=== PATIENT | male | born 1955 | race Two or more races ===

== ENCOUNTER 2016-07-29 10:32 | Inpatient (IN) | payer MEDICARE, MEDICAID ==
[2016-07-29 11:10] LABS: Hematocrit 43 % (42-52); Hemoglobin 14.3 g/dl (14.0-18.0); Mean Corpuscular HGB Conc 34 g/dl (31-36); Mean Corpuscular Hemoglobin 32 pg (27-31); Mean Corpuscular Volume 95 fL (80-94); Mean Platelet Volume 10 um3 (7.4-10.4); Red Blood Count 4.48 10^6/ul (4.0-5.4); Red Cell Distribution Width 14 % (10.5-15); White Blood Count 5.7 10^3/ul (3.5-10.8)
[2016-07-29] MEDS ORDERED: Magnesium Sulfate 1 GM IV* 1 GM/100 ML BAG IV ONE (11:20)
[2016-07-29] MEDS ORDERED: LORazepam INJ* 2 MG/ML 1 ML VIAL IV ONE ×3 (11:20→17:47)
[2016-07-29] MEDS ORDERED: Thiamine IV* 100 MG, Folic Acid IV* 1 MG, Multiple Vitamin IV ADULT* 10 ML in NS 0.9% 1... IV ONE (11:20)
[2016-07-29 11:22] LABS: ALT 35 U/L (7-52); AST 111 U/L (13-39); Albumin 4.5 g/dL (3.2-5.2); Alkaline Phosphatase 71 U/L (34-104); Anion Gap 10 mmol/L (2-11); BUN/Creatinine Ratio 15.2 (8-20); Blood Urea Nitrogen 15 mg/dL (6-24); CO2 Carbon Dioxide 24 mmol/L (22-32); Calcium 9.8 mg/dL (8.6-10.3); Chloride 102 mmol/L (101-111); EGFR African American 99.2 (>60); EGFR Non-African American 77.1 (>60); Globulin 3.5 g/dL (2-4); Glucose 122 mg/dL (70-100); Potassium 4.6 mmol/L (3.5-5.0); Sodium 136 mmol/L (133-145)
[2016-07-29] MEDS ORDERED: Ondansetron INJ* 2 MG/ML VIAL IV ONE (11:27)
--- NOTE | 2016-07-29 12:21 | ED ---
Complex/Multi-Sys Presentation - HPI Summary HPI Summary: Patient presents with nausea, vomiting, tremors, sweating, headache and hypertension since he stopped drinking alcohol yesterday. He typically consumes approximately 100 ounces of beer or liquor daily for years. He was sober for 9 years, but has been drinking again for the last 2 years. He awoke this morning at home "in bad shape" so he went to [facility] for help. An ambulance was called and he was brought to [facility] [place]. - History Of Current Complaint Chief Complaint: EDSubstanceAbuse Time Seen by Provider: 07/29/16 10:53 Hx Obtained From: Patient Onset/Duration: Gradual Onset Timing: Constant Severity Currently: Severe Severity Initially: Mild Location: Negative Aggravating Factor(s): movement Alleviating Factor(s): nothing Associated Signs And Symptoms: Positive: Headache, Nausea, Vomiting, Diaphoresis - mild - Allergies/Home Medications Allergies/Adverse Reactions: Allergies Allergy/AdvReac Type Severity Reaction Status Date / Time No Known Allergies Allergy Verified 07/29/16 10:59 PMH/Surg Hx/FS Hx/Imm Hx Endocrine/Hematology History: Reports: Hx Thyroid Disease Cardiovascular History: Reports: Hx Coronary Artery Disease, Hx Hypertension, Hx Pacemaker/ICD Denies: Other Cardiovascular Problems/Disorders Respiratory History: Reports: Hx Seasonal Allergies Denies: Other Respiratory Problems/Disorders GI History: Reports: Hx Gastroesophageal Reflux Disease, Hx Ulcer - HX ULCERS- SURGICALLY REPAIRED Musculoskeletal History: Reports: Hx Arthritis - HANDS, Hx Back Problems, Hx Gout, Hx Orthopedic Injury, Hx Tendonitis, Other Musculoskeletal History - HX GOUT FOOT AND RIGHT HIP AND FINFERS Sensory History: Reports: Hx Contacts or Glasses - READING Denies: Hx Hearing Aid Opthamlomology History: Reports: Hx Contacts or Glasses - READING Neurological History: Denies: Other Neuro Impairments/Disorders Psychiatric History: Reports: Hx Anxiety - ON MEDS, Hx Depression, Hx Inpatient Treatment - [facility], Hx Community [facility] Health [place] - [facility], Hx Suicide Attempt, Hx Substance Abuse - Alcohol. Lived at [facility] for 8yrs Denies: Hx Attention Deficit Hyperactivity Disorder, Hx Eating Disorder, Hx Panic Disorder, Hx Post Traumatic Stress Disorder, Hx Schizophrenia, Hx Bipolar Disorder, Hx of Violent Episodes Against Others, Other Psychiatric Issues/ Disorders - Surgical History Surgery Procedure, Year, and Place: LUMBAR x3 - LAST ONE 1988. STOMACH ULCER. CARDIAC BYPASS-. HEEL Rt - - THEN REMOVED METAL IN 1986 Hx Anesthesia Reactions: No - Immunization History Date of Tetanus Vaccine: Unk Date of Influenza Vaccine: None Infectious Disease History: Yes Infectious Disease History: Reports: Hx Hepatitis - HEP B Denies: Hx Clostridium Difficile, Hx Human Immunodeficiency Virus (HIV), Hx of Known/Suspected MRSA, Hx Shingles, Hx Tuberculosis, Hx Known/Suspected VRE, Hx Known/Suspected VRSA, History Other Infectious Disease, Traveled Outside the [place] in Last 30 Days - Family History Known Family History: Positive: Cardiac Disease, Other - alcohol abuse Negative: Hypertension, Diabetes - Social History Occupation: Unemployed Lives: Alone Alcohol Use: Daily Alcohol Amount: BEER 100 0Z A DAY (4-5 CANS OF BEER A DAY) Substance Use Type: Reports: Cocaine, Marijuana Substance Use Comment - Amount & Last Used: Pt reports trying not to drink but finds himself starting early on everyday Smoking Status (MU): Current Every Day Smoker Type: Cigarettes Amount Used/How Often: states stoppe smoking a year ago (05/15) Have You Smoked in the Last Year: Yes Cessation Counseling: Patient Advised to Stop Review of Systems Positive: Chills, Fatigue. Negative: Fever Negative: Chest Pain Negative: Shortness Of Breath Positive: Vomiting, Nausea. Negative: Diarrhea Positive: Headache Positive: Anxious All Other Systems Reviewed And Are Negative: Yes Physical Exam Triage Information Reviewed: Yes Vital Signs On Initial Exam: Initial Vitals Temp Pulse Resp BP Pulse Ox 98.7 F 64 16 217/93 97 07/29/16 10:42 07/29/16 10:42 07/29/16 10:42 07/29/16 10:42 07/29/16 10:42 Vital Signs Reviewed: Yes Appearance: Positive: No Pain Distress, Well-Nourished, Ill-Appearing Skin: Positive: Warm, Skin Color Reflects Adequate Perfusion, Dry, Soft Head/Face: Positive: Normal Head/Face Inspection Eyes: Positive: EOMI, SONJA, Conjunctiva Clear ENT: Positive: Hearing grossly normal, Pharynx normal Neck: Positive: Supple, Nontender, No Lymphadenopathy Respiratory/Lung Sounds: Positive: Clear to Auscultation, Breath Sounds Present Cardiovascular: Positive: RRR Abdomen Description: Positive: Nontender, Soft. Negative: Distended Bowel Sounds: Positive: Present Musculoskeletal: Positive: Strength/ROM Intact Neurological: Positive: Sensory/Motor Intact, Alert, Oriented to Person Place, Time Psychiatric: Positive: Anxious - patient appears anxious and worried about how he is feeling AVPU Assessment: Alert - Bess Coma Scale Coma Scale Total: 15 Diagnostics - Vital Signs Vital Signs Temp Pulse Resp BP Pulse Ox 07/29/16 12:00 74 12 173/85 99 07/29/16 11:37 16 07/29/16 11:30 63 16 179/87 97 07/29/16 11:00 69 13 189/100 99 07/29/16 10:43 74 19 217/93 99 07/29/16 10:42 98.7 F 64 16 217/93 97 - Laboratory Lab Results: Lab Results 07/29/16 07/29/16 07/29/16 Range/Units 10:42 10:42 10:42 WBC 5.7 (3.5-10.8) 10^3/ul RBC 4.48 (4.0-5.4) 10^6/ul Hgb 14.3 (14.0-18.0) g/dl Hct 43 (42-52) % MCV 95 H (80-94) fL MCH 32 H (27-31) pg MCHC 34 (31-36) g/dl RDW 14 (10.5-15) % Plt Count 214 (150-450) 10^3/ul MPV 10 (7.4-10.4) um3 Neut % (Auto) 77.4 (38-83) % Lymph % (Auto) 14.5 L (25-47) % Clinton % (Auto) 6.8 (1-9) % Eos % (Auto) 0.5 (0-6) % Baso % (Auto) 0.8 (0-2) % Absolute Neuts (auto) 4.4 (1.5-7.7) 10^3/ul Absolute Lymphs (auto) 0.8 L (1.0-4.8) 10^3/ul Absolute Monos (auto) 0.4 (0-0.8) 10^3/ul Absolute Eos (auto) 0 (0-0.6) 10^3/ul Absolute Basos (auto) 0 (0-0.2) 10^3/ul Absolute Nucleated RBC 0 10^3/ul Nucleated RBC % 0 INR (Anticoag Therapy) 0.87 L (0.89-1.11) Sodium 136 (133-145) mmol/L Potassium 4.6 (3.5-5.0) mmol/L Chloride 102 (101-111) mmol/L Carbon Dioxide 24 (22-32) mmol/L Anion Gap 10 (2-11) mmol/L BUN 15 (6-24) mg/dL Creatinine 0.99 (0.67-1.17) mg/dL Est GFR ( Amer) 99.2 (>60) Est GFR (Non-Af Amer) 77.1 (>60) BUN/Creatinine Ratio 15.2 (8-20) Glucose 122 H (70-100) mg/dL Calcium 9.8 (8.6-10.3) mg/dL Total Bilirubin 1.30 H (0.2-1.0) mg/dL AST 111 H (13-39) U/L ALT 35 (7-52) U/L Alkaline Phosphatase 71 (34-104) U/L Total Protein 8.0 (6.4-8.9) g/dL Albumin 4.5 (3.2-5.2) g/dL Globulin 3.5 (2-4) g/dL Albumin/Globulin Ratio 1.3 (1-3) Result Diagrams: 07/29/16 10:42 07/29/16 10:42 Lab Statement: Any lab studies that have been ordered have been reviewed, and results considered in the medical decision making process. - EKG No standard instances Cardiac Rate: NL EKG Rhythm: Sinus Rhythm ST Segment: Normal Ectopy: None Re-Evaluation - Re-Evaluation First Eval Re-Evaluation Time: 13:30 Change: Improved - Patient less nauseous requesting a sandwich Second Eval Change: Worse - Starting to get leg cramps, which he has a history of. Third Eval Change: Worse - Patient got out of bed without calling for assistance and slipped on his cords, spilling his water and landing on his right forearm and lower leg. He denies hitting his head, and does not have a deformity to the arm or leg. He is tender to touch on the muscles of the arm and calf, but skin is intact. He was helped to the commode, and while using the bathroom he made irrational comments to the nurse, and seems more agitated. I will discuss admission for observation with the hospitalist. Complex Multi-Symp Course/Dx - Diagnoses Differential Diagnoses/HQI/PQRI: Aspiration, Closed Cranial Trauma, CVA, Metabolic Abnormality, Sepsis, Urinary Tract Infection Provider Diagnoses: Alcohol withdrawal - Physician Notifications Discussed Care Of Patient With: Dr. Waldrop, ED attending Discharge - Discharge Plan Condition: Stable Disposition: ADMITTED TO [facility]
[2016-07-29 13:58] LABS: Benzodiazepine Urine Screen None Detected (None Detect)
[2016-07-29 15:14] LABS: Troponin I 0.01 ng/mL (<0.04)
[2016-07-29 17:10] LABS: Alcohol < 10 mg/dL (<10)
[2016-07-29] MEDS ORDERED: Ondansetron INJ* 2 MG/ML VIAL IV PRN (18:14)
[2016-07-29 18:16] LABS: TSH (Thyroid Stimulating Horm) 4.34 mcIU/mL (0.34-5.60)
--- NOTE | 2016-07-29 18:53 | PN ---
Hospitalist Progress Note HOSPITALIST ADDENDUM Case reviewed and d/w A. Yu BARKLEY. Mr. Decker is a 61 yo M with PMH of PSA who presents to ED with ETOH withdrawal. Labs reviewed. Agree with current management.
[2016-07-29] MEDS ORDERED: Nicotine Inhaler* 10 MG AMP ONE (19:16)
[2016-07-29] MEDS ORDERED: Mouth Piece, Nicotine* 1 EACH CARTRIDGE ONE (19:17)
[2016-07-29] MEDS: Nicotine GUM* 2 MG PO PRN (20:34)
[2016-07-29] MEDS: LORazepam TAB(*) 1 MG PO SCH (20:34)
[2016-07-29] MEDS: Enoxaparin(*) 40 MG/0.4 ML SYR SUBCUT SCH (20:34)
--- NOTE | 2016-07-30 00:49 | HP ---
ADMISSION HISTORY AND PHYSICAL: DATE OF ADMISSION: 07/29/16 PRIMARY CARE PROVIDER: Octaviano Dupree MD ADMITTING PROVIDER: RUBIA Corral SUPERVISING PHYSICIAN: Cristy Main MD* (report dictated by RUBIA Corral). CHIEF COMPLAINT: Request for detox. HISTORY OF PRESENT ILLNESS: This is a 61-year-old gentleman with a history of polysubstance abuse as well as coronary artery disease and hypothyroidism, peptic ulcer disease who presented to the emergency department with request for help with detox. He stopped drinking on his own last night and presented to [facility] this morning requesting help who referred him to the emergency department for further evaluation. The patient was noted to be quite hypertensive with systolic pressures greater than 200 when he reached the ER. He was also noted to be quite tremulous. He has been given IV fluids and 3 doses of IV Ativan with some improvement. The patient started to have some visual hallucinations, however, and confusion and there was a request for admission. The patient has had long period of sobriety in the past. He was sober for about 9 years, but drinking regularly for the last 2 years. He admits to get regular marijuana use and occasional cocaine use as well. His last cocaine was approximately 2 days ago. He does have a known history of coronary artery disease and admits to only taking his medications on an intermittent basis. The patient denies any chest pain or palpitations. No shortness of breath or persistent cough. He has been nauseous with vomiting and diarrhea, however. He has felt intermittently febrile, but nothing measured. The patient denies history of seizures with prior detox. He is interested in pursuing perhaps an inpatient rehab after completing detox. PAST MEDICAL HISTORY: 1. Polysubstance abuse, most notably alcoholism. 2. Hypothyroidism. 3. Chronic hepatitis C. 4. Peptic ulcer disease, status post partial gastrectomy. 5. Hypertension. 6. Coronary artery disease, status post CABG. 7. Gout. PAST SURGICAL HISTORY: 1. CABG. 2. Unspecified back surgeries. 3. Partial gastrectomy. 4. Right ankle ORIF. HOME MEDICATIONS: 1. Allopurinol 300 mg p.o. daily. 2. Atorvastatin 10 mg p.o. daily. 3. Ferrous sulfate 325 mg p.o. daily. 4. Levothyroxine 88 mcg p.o. daily. 5. Metoprolol succinate 100 mg p.o. daily. 6. Naltrexone 50 mg p.o. daily. 7. Naproxen 500 mg p.o. twice daily. 8. Paxil 20 mg p.o. daily. 9. Hydroxyzine 25 mg p.o. q.4 hours p.r.n. SOCIAL HISTORY: The patient currently lives on his own and is unemployed. He reports regular tobacco use with approximate 40 to [id number] smoking history. Admits to regular alcohol consumption, states that he drinks about 100 ounces of beer daily. He denies heavy or hard alcohol use. Admits to regular marijuana use and occasional cocaine abuse. REVIEW OF SYSTEMS: As noted above in HPI. PHYSICAL EXAMINATION GENERAL: This is a well-appearing, middle-aged gentleman, who appears slightly tremulous, but is in no acute distress, but does appear anxious. VITAL SIGNS: Initial vitals showed temperature of 98.7 degrees Fahrenheit, pulse 64 beats per minute, respiratory rate 16 per minute, oxygen saturation 97 % on room air, blood pressure 217/93 mmHg. Most recent blood pressure measured with 177/81 mmHg. The patient has not been tachycardic during his ER stay. HEENT: Head is normocephalic and atraumatic. Mucous membranes are pink and most. RESPIRATORY: Lungs are clear to auscultation without wheezes, crackles, or rhonchi. CARDIOVASCULAR: Heart has a regular rate and rhythm without murmurs, rubs, or gallops. ABDOMEN: Soft and nontender to palpation. EXTREMITIES: No lower extremity edema. SKIN: Limited exam is free of rashes and lesions. PSYCH: The patient is alert, appropriately oriented, but does appear anxious. LABORATORY EVALUATION: CBC is essentially within normal limits. White blood cell count of 5700, hemoglobin 14.3 g/dL, and platelet count of 214,000. INR is normal at 0.87. Comprehensive metabolic panel shows a normal sodium of 136 mmol/L, potassium 4.6 mmol/L, BUN normal at 15, and creatinine 0.99. Random glucose of 122 mg/dL. Total bilirubin mildly elevated at 1.3 and AST at 111 with normal ALT of 35 and alk phos 71. Troponin negative at 0.01. Ammonia mildly elevated at 70. TSH is normal at 4.34. Toxicology screen is negative for alcohol, positive for cocaine and marijuana. IMAGING: EKG shows sinus rhythm with frequent PVCs. ASSESSMENT AND PLAN: This is a 61-year-old gentleman with history of polysubstance abuse, most notably alcoholism, as well as coronary artery disease , hypothyroidism, and peptic ulcer disease who presented with request for detox. The patient will be admitted to the hospital. 1. Alcohol withdrawal. The patient shows signs of moderate alcohol withdrawal in the emergency department and then began to develop some visual hallucinations. The patient will be admitted and placed on WAM protocol with oral Ativan. Continue IV fluids with lactated Ringer's and supportive care with the antiemetics. 2. History of coronary artery disease. The patient is currently asymptomatic. No changes on EKG and troponin is negative. We will place him on telemetry, however, during his time of detox as he is at high risk for dysrhythmias. We will continue his beta-irma. Also, note that he is not on an aspirin, which will be added. 3. Chronic hepatitis C. 4. Peptic ulcer disease. The patient is not currently on a PPI per his home medication list, but will be started on one as he is at high risk for gastritis and ulceration with his history of alcoholism. 5. Hypertension. Continue his beta-irma. 6. Tobacco abuse. The patient declines use of a nicotine patch during his hospital stay, but will write for p.r.n. nicotine gum for acute cravings. 7. Code status: The patient is full code. 8. DVT prophylaxis. The patient will be started on 40 mg of Lovenox subcu daily. 9. Healthcare proxy is unknown. DISPOSITION: The patient is being admitted to the hospital under inpatient status for acute alcohol withdrawal. ANTICIPATED LENGTH OF STAY: Greater than 2 days. RUBIA CORRAL CC: Dr. Dupree* [id number]/[facility] #: [id number] GLENYS
[2016-07-30] MEDS ORDERED: hydrALAZINE IV* 20 MG/ML VIAL IV ONE (04:22)
[2016-07-30] MEDS: Levothyroxine TAB* 88 MCG TAB PO SCH (05:09)
[2016-07-30 06:11] LABS: Hematocrit 39 % (42-52); Hemoglobin 13.1 g/dl (14.0-18.0); Mean Corpuscular HGB Conc 34 g/dl (31-36); Mean Corpuscular Hemoglobin 32 pg (27-31); Mean Corpuscular Volume 96 fL (80-94); Mean Platelet Volume 10 um3 (7.4-10.4); Red Blood Count 4.06 10^6/ul (4.0-5.4); Red Cell Distribution Width 14 % (10.5-15)
[2016-07-30 06:35] LABS: Albumin 3.9 g/dL (3.2-5.2); BUN/Creatinine Ratio 15.1 (8-20); Calcium 9.2 mg/dL (8.6-10.3); EGFR African American 106.6 (>60); EGFR Non-African American 82.9 (>60); Globulin 3.1 g/dL (2-4); Potassium 3.6 mmol/L (3.5-5.0); Total Bilirubin 1.3 mg/dL (0.2-1.0)
[2016-07-30] MEDS: Atorvastatin* 10 MG TAB PO SCH (08:04)
[2016-07-30] MEDS: Allopurinol TAB* 300 MG PO SCH (08:04)
[2016-07-30] MEDS: Omeprazole CAP* 20 MG PO SCH (08:04)
[2016-07-30] MEDS: Aspirin Low Dose CHEW TAB* 81 MG PO SCH (08:04)
[2016-07-30] MEDS: Multivitamins/Minerals TAB PO SCH (08:05)
[2016-07-30] MEDS: Folic Acid TAB* 1 MG PO SCH (08:05)
[2016-07-30] MEDS: PARoxetine HCL TAB* 20 MG PO SCH (08:05)
[2016-07-30] MEDS: Thiamine TAB* 100 MG TAB PO SCH (08:05)
[2016-07-30] MEDS ORDERED: Pneumococcal *Vac Polyvalent 0.5 ML VIAL IM ONE (09:00)
[2016-07-30] MEDS ORDERED: Influenza VAC *QUAD* 2016-17* 0.5 ML SYRINGE IM ONE (09:00)
[2016-07-30] MEDS ORDERED: Metoprolol Succinate XL TAB* 50 MG PO SCH (09:00)
[2016-07-30] MEDS: FERROUS SULFATE DRIED PO SCH (10:29)
[2016-07-30] MEDS ORDERED: Magnesium Sulfate 2 GM IV* 2 GM/50 ML BAG IVPB ONE (11:55)
[2016-07-30] MEDS: Metoprolol Succinate XL TAB* 50 MG PO SCH (12:24)
[2016-07-30] MEDS: Nicotine GUM* 2 MG PO PRN (15:32)
--- NOTE | 2016-07-30 16:44 | PN ---
Subjective Date of Service: 07/30/16 Interval History: This is a 61 yo gentleman with h/o alcoholism and CAD who presented to ER requesting detox. Patient has been placed on WA protocol. Seems to be doing fairly well since admission. Only required 1 dose of ativan overnight. Nursing noted he was in bigeminy/trigeminy earlier today. Patient was asymptomatic. Patient reports improvement in his tremulousness. Still some nausea but tolerating diet well. No abdominal pain. No CP or SOB. Objective Active Medications: Acetaminophen (Tylenol Tab*) 650 mg PO Q4H PRN PRN Reason: FEVER/PAIN Allopurinol (Zyloprim Tab*) [address] [facility] Last Admin: 07/30/16 08:04 Dose: 300 mg Aspirin (Aspirin Low Dose Tab*) [address] [facility] Last Admin: 07/30/16 08:04 Dose: 81 mg Atorvastatin Calcium (Lipitor*) [address] [facility] Last Admin: 07/30/16 08:04 Dose: 10 mg Enoxaparin Sodium (Lovenox(*)) [address] [facility] Last Admin: 07/29/16 20:34 Dose: 40 mg Folic Acid (Folvite Tab*) [address] [facility] Last Admin: 07/30/16 08:05 Dose: 1 mg Lactated Ringer's (Lactated Ringers 1000 Ml Bag*) 1,000 mls @ 60 mls/hr IV PER RATE [facility] Levothyroxine Sodium (Synthroid Tab*) 88 mcg PO DAILY@0600 [facility] Last Admin: 07/30/16 05:09 Dose: 88 mcg Lorazepam (Ativan Tab(*)) 0 mg PO .PER WAM SCORE [facility] PRN Reason: Protocol Last Admin: 07/29/16 20:34 Dose: 1 mg Metoprolol Succinate (Toprol Xl Tab*) [address] [facility] Last Admin: 07/30/16 12:24 Dose: 50 mg Multivitamins/Minerals (Theragran/Minerals Tab*) [address] [facility] Last Admin: 07/30/16 08:05 Dose: 1 tab Nicotine Polacrilex (Nicotine Gum*) 2 mg PO Q2H PRN PRN Reason: CRAVING Last Admin: 07/30/16 15:32 Dose: 2 mg Ferrous Sulfate Dried [Slow Fe] 324 Mg [address] [facility] Last Admin: 07/30/16 10:29 Dose: Not Given Omeprazole (Prilosec Cap*) 20 mg PO DAILY@0730 [facility] Last Admin: 07/30/16 08:04 Dose: 20 mg Ondansetron HCl (Zofran Inj*) 4 mg IV Q4H PRN PRN Reason: NAUSEA/VOMITING Paroxetine HCl (Paxil Tab*) [address] [facility] Last Admin: 07/30/16 08:05 Dose: 20 mg Thiamine HCl (Vitamin B-1 Tab*) [address] [facility] Last Admin: 07/30/16 08:05 Dose: 100 mg Vital Signs: Temp Pulse Resp BP Pulse Ox 97.7 F 91 16 183/90 100 07/30/16 12:05 07/30/16 10:04 07/30/16 12:05 07/30/16 12:05 07/30/16 12:05 Oxygen Devices in Use Now: None Appearance: Well appearing, in NAD Ears/Nose/Mouth/Throat: Mucous Membranes Moist Respiratory: Symmetrical Chest Expansion and Respiratory Effort, Clear to Auscultation Cardiovascular: NL Sounds; No Murmurs; No JVD, RRR Abdominal: NL Sounds; No Tenderness; No Distention Extremities: No Edema Skin: No Rash or Ulcers Neurological: Alert and Oriented x 3 Result Diagrams: 07/30/16 05:19 07/30/16 05:19 Additional Lab and Data: . Microbiology and Other Data: Microbiology 07/29/16 20:42 Nasal Screen MRSA (PCR)(ROMANA) - Final Nasal Mrsa Negative Assess/Plan/Problems-Billing Assessment: This is a 61 yo gentleman with h/o CAD and alcoholism admitted for ETOH w/d. - Patient Problems (1) Alcohol withdrawal Comment: Appears to be doing fairly well No hallucinations or seizure activity Can slow IVF as he is tolerating a regular diet Cont WAM protocol (2) Ventricular dysrhythmia Comment: Bigeminy/trigeminy on tele earlier today Improved with Mg and BB Cont tele (3) CAD (coronary artery disease) Comment: s/p CABG Cont BB, statin, ASA added Maintain tele during withdrawal (4) Hypertension Comment: Cont metoprolol (5) Hypothyroid Comment: TSH nl Cont levothyroxine (6) History of peptic ulcer disease Comment: No c/o abd pain Started PPI (7) Hx of hepatitis C Status and Disposition: Continue inpatient stay, anticipate discharge in ~2 days, patient desires rehab at discharge
[2016-07-30] MEDS: Enoxaparin(*) 40 MG/0.4 ML SYR SUBCUT SCH (19:43)
[2016-07-30] MEDS: LORazepam TAB(*) 1 MG PO SCH (22:32)
[2016-07-31] MEDS: Nicotine GUM* 2 MG PO PRN (01:31)
[2016-07-31] MEDS ORDERED: hydrALAZINE IV* 20 MG/ML VIAL IV ONE (02:40)
[2016-07-31] MEDS: LORazepam TAB(*) 1 MG PO SCH ×2 (02:52→20:24)
[2016-07-31] MEDS: Levothyroxine TAB* 88 MCG TAB PO SCH (05:10)
[2016-07-31] MEDS: Metoprolol Succinate XL TAB* 50 MG PO SCH (08:35)
[2016-07-31] MEDS: Omeprazole CAP* 20 MG PO SCH (08:35)
[2016-07-31] MEDS: PARoxetine HCL TAB* 20 MG PO SCH (08:36)
[2016-07-31] MEDS: Multivitamins/Minerals TAB PO SCH (08:36)
[2016-07-31] MEDS: Thiamine TAB* 100 MG TAB PO SCH (08:36)
[2016-07-31] MEDS: Folic Acid TAB* 1 MG PO SCH (08:36)
[2016-07-31] MEDS: Allopurinol TAB* 300 MG PO SCH (08:37)
[2016-07-31] MEDS: Aspirin Low Dose CHEW TAB* 81 MG PO SCH (08:37)
[2016-07-31] MEDS: Atorvastatin* 10 MG TAB PO SCH (08:37)
[2016-07-31] MEDS: FERROUS SULFATE DRIED PO SCH (08:38)
[2016-07-31] MEDS: Acetaminophen TAB* 325 MG PO PRN ×2 (13:44→20:25)
--- NOTE | 2016-07-31 16:58 | PN ---
Subjective Date of Service: 07/31/16 Interval History: Patient reports overall improvement. Anxiety has improved. Nausea improved. Tolerating full meals. Objective Active Medications: Acetaminophen (Tylenol Tab*) 650 mg PO Q4H PRN PRN Reason: FEVER/PAIN Last Admin: 07/31/16 13:44 Dose: 650 mg Allopurinol (Zyloprim Tab*) 300 mg PO DAILY [facility] Last Admin: 07/31/16 08:37 Dose: 300 mg Aspirin (Aspirin Low Dose Tab*) 81 mg PO DAILY [facility] Last Admin: 07/31/16 08:37 Dose: 81 mg Atorvastatin Calcium (Lipitor*) 10 mg PO DAILY [facility] Last Admin: 07/31/16 08:37 Dose: 10 mg Enoxaparin Sodium (Lovenox(*)) 40 mg SUBCUT Q24H [facility] Last Admin: 07/30/16 19:43 Dose: 40 mg Folic Acid (Folvite Tab*) 1 mg PO DAILY [facility] Last Admin: 07/31/16 08:36 Dose: 1 mg Lactated Ringer's (Lactated Ringers 1000 Ml Bag*) 1,000 mls @ 60 mls/hr IV PER RATE [facility] Last Admin: 07/31/16 15:26 Dose: 60 mls/hr Levothyroxine Sodium (Synthroid Tab*) 88 mcg PO DAILY@0600 [facility] Last Admin: 07/31/16 05:10 Dose: 88 mcg Lorazepam (Ativan Tab(*)) 0 mg PO .PER [facility] SCORE [facility] PRN Reason: Protocol Last Admin: 07/31/16 02:52 Dose: 1 mg Metoprolol Succinate (Toprol Xl Tab*) 100 mg PO DAILY [facility] Multivitamins/Minerals (Theragran/Minerals Tab*) 1 tab PO DAILY [facility] Last Admin: 07/31/16 08:36 Dose: 1 tab Nicotine Polacrilex (Nicotine Gum*) 2 mg PO Q2H PRN PRN Reason: CRAVING Last Admin: 07/31/16 01:31 Dose: 2 mg Ferrous Sulfate Dried [Slow Fe] 324 Mg 324 mg PO DAILY [facility] Last Admin: 07/31/16 08:38 Dose: Not Given Omeprazole (Prilosec Cap*) 20 mg PO DAILY@0730 [facility] Last Admin: 07/31/16 08:35 Dose: 20 mg Ondansetron HCl (Zofran Inj*) 4 mg IV Q4H PRN PRN Reason: NAUSEA/VOMITING Paroxetine HCl (Paxil Tab*) 20 mg PO QAM [facility] Last Admin: 07/31/16 08:36 Dose: 20 mg Thiamine HCl (Vitamin B-1 Tab*) 100 mg PO DAILY [facility] Last Admin: 07/31/16 08:36 Dose: 100 mg Vital Signs: Temp Pulse Resp BP Pulse Ox 98.2 F 31 18 141/57 100 07/31/16 15:16 07/31/16 15:16 07/31/16 15:16 07/31/16 15:16 07/31/16 15:16 Oxygen Devices in Use Now: None Appearance: well appearing, well developed, in NAD Neck: NL Appearance and Movements; NL JVP Respiratory: Symmetrical Chest Expansion and Respiratory Effort, Clear to Auscultation Cardiovascular: NL Sounds; No Murmurs; No JVD, RRR Abdominal: NL Sounds; No Tenderness; No Distention Extremities: No Edema Skin: No Rash or Ulcers Neurological: Alert and Oriented x 3, - - mood and affect are improved Result Diagrams: 07/30/16 05:19 07/30/16 05:19 Additional Lab and Data: . Microbiology and Other Data: Microbiology 07/29/16 20:42 Nasal Screen MRSA (PCR)(ROMANA) - Final Nasal Mrsa Negative Assess/Plan/Problems-Billing Assessment: This is a 61 yo gentleman with h/o CAD and alcoholism admitted for ETOH w/d. - Patient Problems (1) Alcohol withdrawal Comment: Appears to be doing fairly well No hallucinations or seizure activity Cont [facility] protocol (2) Ventricular dysrhythmia Comment: Note frequent PVCs with occasional bigeminy and trigeminy Increase metoprolol Will repeat chemistries tomorrow (3) CAD (coronary artery disease) Comment: s/p CABG Cont BB, statin, ASA added Maintain tele during withdrawal (4) Hypertension Comment: Cont metoprolol (5) Hypothyroid Comment: TSH nl Cont levothyroxine (6) History of peptic ulcer disease Comment: No c/o abd pain Started PPI (7) Hx of hepatitis C Status and Disposition: Continue inpatient stay, anticipate he will be ready for discharge tomorrow. [facility] has arranged inpatient rehab at [facility] in [place]. They have a bed available for him on Skylar 08/06. Transport was arranged by FL[facility]ENCE for him to be picked up from his home on .
[2016-07-31] MEDS: Enoxaparin(*) 40 MG/0.4 ML SYR SUBCUT SCH (20:25)
[2016-07-31] MEDS ORDERED: hydrALAZINE IV* 20 MG/ML VIAL IV SLOW PU ONE (22:15)
[2016-08-01] MEDS: Levothyroxine TAB* 88 MCG TAB PO SCH (05:17)
[2016-08-01 05:36] LABS: BUN/Creatinine Ratio 16.9 (8-20); Calcium 9.1 mg/dL (8.6-10.3); EGFR African American 132.5 (>60); EGFR Non-African American 103.1 (>60); Magnesium 1.7 mg/dL (1.9-2.7); Potassium 3.6 mmol/L (3.5-5.0)
[2016-08-01] MEDS: Metoprolol Succinate XL TAB* 100 MG PO SCH (07:58)
[2016-08-01] MEDS: Allopurinol TAB* 300 MG PO SCH (07:59)
[2016-08-01] MEDS: Omeprazole CAP* 20 MG PO SCH (07:59)
[2016-08-01] MEDS: PARoxetine HCL TAB* 20 MG PO SCH (07:59)
[2016-08-01] MEDS: Folic Acid TAB* 1 MG PO SCH (07:59)
[2016-08-01] MEDS: Thiamine TAB* 100 MG TAB PO SCH (07:59)
[2016-08-01] MEDS: Multivitamins/Minerals TAB PO SCH (07:59)
[2016-08-01] MEDS: Aspirin Low Dose CHEW TAB* 81 MG PO SCH (07:59)
[2016-08-01] MEDS: Atorvastatin* 10 MG TAB PO SCH (07:59)
[2016-08-01] MEDS: FERROUS SULFATE 325 MG PO SCH (08:11)
--- NOTE | 2016-08-01 18:09 | PN ---
Subjective Date of Service: 08/01/16 Interval History: Patient feels better. he is very scared of going home on New Years Nori because of the drinking that will go on in his neighborhood. Objective Active Medications: Acetaminophen (Tylenol Tab*) 650 mg PO Q4H PRN PRN Reason: FEVER/PAIN Last Admin: 07/31/16 20:25 Dose: 650 mg Allopurinol (Zyloprim Tab*) 300 mg PO DAILY [facility] Last Admin: 08/01/16 07:59 Dose: 300 mg Aspirin (Aspirin Low Dose Tab*) 81 mg PO DAILY [facility] Last Admin: 08/01/16 07:59 Dose: 81 mg Atorvastatin Calcium (Lipitor*) 10 mg PO DAILY [facility] Last Admin: 08/01/16 07:59 Dose: 10 mg Enoxaparin Sodium (Lovenox(*)) 40 mg SUBCUT Q24H [facility] Last Admin: 07/31/16 20:25 Dose: 40 mg Ferrous Sulfate (Ferrous Sulfate Tab*) 325 mg PO DAILY [facility] Last Admin: 08/01/16 08:11 Dose: 325 mg Folic Acid (Folvite Tab*) 1 mg PO DAILY [facility] Last Admin: 08/01/16 07:59 Dose: 1 mg Levothyroxine Sodium (Synthroid Tab*) 88 mcg PO DAILY@0600 [facility] Last Admin: 08/01/16 05:17 Dose: 88 mcg Lorazepam (Ativan Tab(*)) 0 mg PO .PER WAM SCORE [facility] PRN Reason: Protocol Last Admin: 07/31/16 20:24 Dose: 1 mg Metoprolol Succinate (Toprol Xl Tab*) 100 mg PO DAILY [facility] Last Admin: 08/01/16 07:58 Dose: 100 mg Multivitamins/Minerals (Theragran/Minerals Tab*) 1 tab PO DAILY [facility] Last Admin: 08/01/16 07:59 Dose: 1 tab Nicotine Polacrilex (Nicotine Gum*) 2 mg PO Q2H PRN PRN Reason: CRAVING Last Admin: 07/31/16 01:31 Dose: 2 mg Omeprazole (Prilosec Cap*) 20 mg PO DAILY@0730 [facility] Last Admin: 08/01/16 07:59 Dose: 20 mg Ondansetron HCl (Zofran Inj*) 4 mg IV Q4H PRN PRN Reason: NAUSEA/VOMITING Paroxetine HCl (Paxil Tab*) 20 mg PO QAM [facility] Last Admin: 08/01/16 07:59 Dose: 20 mg Thiamine HCl (Vitamin B-1 Tab*) 100 mg PO DAILY [facility] Last Admin: 08/01/16 07:59 Dose: 100 mg Vital Signs 07/31/16 07/31/16 07/31/16 18:14 19:47 20:08 Temperature 98.1 F 98.0 F Pulse Rate 77 65 Respiratory 16 16 16 Rate Blood Pressure 144/73 141/78 (mmHg) O2 Sat by Pulse 99 99 Oximetry 07/31/16 07/31/16 07/31/16 20:14 20:24 22:11 Temperature 98.5 F 98.0 F Pulse Rate 72 35 Respiratory 16 16 Rate Blood Pressure 146/73 187/68 (mmHg) O2 Sat by Pulse 99 100 Oximetry 07/31/16 07/31/16 07/31/16 22:24 22:30 22:55 Temperature Pulse Rate 49 Respiratory 16 Rate Blood Pressure 148/71 152/76 (mmHg) O2 Sat by Pulse Oximetry 07/31/16 08/01/16 08/01/16 22:56 00:17 01:39 Temperature 98.0 F Pulse Rate 70 64 31 Respiratory 20 Rate Blood Pressure 182/83 166/68 (mmHg) O2 Sat by Pulse 100 100 Oximetry 08/01/16 08/01/16 08/01/16 02:23 04:09 05:11 Temperature 98.1 F Pulse Rate 66 33 60 Respiratory 18 20 Rate Blood Pressure 166/68 150/61 (mmHg) O2 Sat by Pulse 100 100 Oximetry 08/01/16 08/01/16 08/01/16 06:06 08:00 10:27 Temperature 98.0 F 97.2 F 97.7 F Pulse Rate 37 54 Respiratory 20 18 18 Rate Blood Pressure 149/57 152/72 150/69 (mmHg) O2 Sat by Pulse 100 100 100 Oximetry 08/01/16 08/01/16 08/01/16 12:08 14:09 15:51 Temperature 98.0 F 97.9 F 98.1 F Pulse Rate 67 71 59 Respiratory 18 18 16 Rate Blood Pressure 151/74 130/75 149/74 (mmHg) O2 Sat by Pulse 100 100 100 Oximetry Oxygen Devices in Use Now: None Appearance: WD/Wn gentleman lying in bed in NAD Ears/Nose/Mouth/Throat: Mucous Membranes Moist Neck: NL Appearance and Movements; NL JVP, No Thyroid Enlargement, Masses Respiratory: Clear to Auscultation Cardiovascular: - - S1S2 saloni Abdominal: NL Sounds; No Tenderness; No Distention, No Hepatosplenomegaly Lymphatic: No Cervical Adenopathy Extremities: No Clubbing, Cyanosis Skin: No Rash or Ulcers Neurological: Alert and Oriented x 3 Result Diagrams: 07/30/16 05:19 08/01/16 04:52 Additional Lab and Data: . Microbiology and Other Data: Microbiology 07/29/16 20:42 Nasal Screen MRSA (PCR)(ROMANA) - Final Nasal Mrsa Negative Assess/Plan/Problems-Billing Assessment: This is a 61 yo gentleman with h/o CAD and alcoholism admitted for ETOH w/d. - Patient Problems (1) Alcohol withdrawal Current Visit: Yes Status: Acute Code(s): F10.239 - ALCOHOL DEPENDENCE WITH WITHDRAWAL, UNSPECIFIED SNOMED Code(s): 431415765 Comment: No current evidence he is withdrawing but did require some Ativan last night. Would discharge, but I agree New Years Nori may not be the most optimal time. (2) CAD (coronary artery disease) Current Visit: Yes Status: Acute Code(s): I25.10 - ATHSCL HEART DISEASE OF [place] CORONARY ARTERY W/O ANG PCTRS SNOMED Code(s): 43093216 Comment: History of CABG Cont BB, statin, ASA added DC telemetry (3) Hypertension Current Visit: Yes Status: Acute Code(s): I10 - ESSENTIAL (PRIMARY) HYPERTENSION SNOMED Code(s): 32273719 Comment: Borderline control. Adjust medications if indicated. (4) Hypothyroid Current Visit: Yes Status: Acute Code(s): E03.9 - HYPOTHYROIDISM, UNSPECIFIED SNOMED Code(s): 80028926 Comment: Stable. Continue levothyroxine (5) DVT prophylaxis Current Visit: Yes Status: Acute Code(s): GPE8245 - SNOMED Code(s): 980189911 Comment: Lovenox (6) Full code status Current Visit: Yes Status: Acute Code(s): Z78.9 - OTHER SPECIFIED HEALTH STATUS SNOMED Code(s): 319381378 Status and Disposition: SW has arranged inpatient rehab at [facility] in [place]. They have a bed available for him on [place] 1/5. Transport was arranged by [facility] for him to be picked up from his home on .
[2016-08-01] MEDS: Enoxaparin(*) 40 MG/0.4 ML SYR SUBCUT SCH (19:29)
[2016-08-01] MEDS: Acetaminophen TAB* 325 MG PO PRN (19:30)
[2016-08-02] MEDS: Acetaminophen TAB* 325 MG PO PRN ×2 (03:24→08:56)
[2016-08-02] MEDS: Levothyroxine TAB* 88 MCG TAB PO SCH (05:08)
[2016-08-02 07:45] VITALS: BP 153/102
[2016-08-02] MEDS: Folic Acid TAB* 1 MG PO SCH (08:51)
[2016-08-02] MEDS: Omeprazole CAP* 20 MG PO SCH (08:52)
[2016-08-02] MEDS: Allopurinol TAB* 300 MG PO SCH (08:53)
[2016-08-02] MEDS: Atorvastatin* 10 MG TAB PO SCH (08:53)
[2016-08-02] MEDS: FERROUS SULFATE 325 MG PO SCH (08:54)
[2016-08-02] MEDS: Metoprolol Succinate XL TAB* 100 MG PO SCH (08:54)
[2016-08-02] MEDS: Multivitamins/Minerals TAB PO SCH (08:55)
[2016-08-02] MEDS: Thiamine TAB* 100 MG TAB PO SCH (08:55)
[2016-08-02] MEDS: Aspirin Low Dose CHEW TAB* 81 MG PO SCH (08:56)
[2016-08-02] MEDS: PARoxetine HCL TAB* 20 MG PO SCH (08:56)
[2016-08-02] MEDS: Nicotine GUM* 2 MG PO PRN (08:56)
--- NOTE | 2016-08-02 10:21 | DCNOTE ---
Patient seen this morning. Reports a bit of nausea and some leg cramping. Understands plans for inpatient rehab on 08/06. On exam, RRR, s1 and s2 present, no m/g/r, abd soft, NTND, BS+ Plan to discharge home today and will go to [place] on 08/06. Will add Amlodipine to home regimen for elevated BPs.
[2016-08-02] MEDS ORDERED: amLODIPine TAB* 5 MG PO SCH (11:00)
--- NOTE | 2016-08-03 09:24 | DS ---
CC: Dr. Dupree DISCHARGE SUMMARY: DATE OF ADMISSION: 07/29/16 DATE OF DISCHARGE: 08/02/16 PRIMARY CARE PHYSICIAN: Dr. Dupree. PRINCIPAL DISCHARGE DIAGNOSIS: Alcohol withdrawal. SECONDARY DIAGNOSES: 1. Hypothyroidism. 2. Chronic hepatitis C. 3. Hypertension. 4. Coronary artery disease, status post coronary artery bypass grafting. 5. Gout. DISCHARGE MEDICATION REGIMEN: 1. Aspirin 81 mg by mouth daily. 2. Folic acid 1 mg by mouth daily. 3. Multivitamin one tablet by mouth daily. 4. Thiamine 100 mg by mouth daily. 5. Amlodipine 5 mg by mouth daily. 6. Hydroxyzine 25 mg by mouth every 4 hours as needed for anxiety. 7. Naltrexone 50 mg by mouth daily. 8. Naproxen 500 mg by mouth 2 times daily as needed for pain. 9. Paxil 20 mg by mouth daily. 10. Metoprolol succinate 100 mg by mouth daily. 11. Allopurinol 300 mg by mouth daily. 12. Atorvastatin 10 mg by mouth daily. 13. Ferrous sulfate 324 mg by mouth daily. 14. Synthroid 88 mcg by mouth daily. HISTORY OF PRESENT ILLNESS AND HOSPITAL SUMMARY: Please see the full history and physical by RUBIA Higginbotham for full details. Briefly, Mr. Decker is a 61 -year- old male with past medical history of alcohol abuse and above past medical history, who presented to the hospital after he stopped drinking on his own and presented to [facility]. He was referred to the hospital for assistance in alcohol detox. The patient was hypertensive and had some mild visual hallucinations on admission. He was treated with benzodiazepines and was monitored on [facility] protocol. He had persistent hypertension throughout his hospitalization. Over the following days, his withdrawal symptoms improved significantly and he did not require any p.r.n. Ativan for over 24 hours prior to discharge. Due to his persistent hypertension, the patient was started on Norvasc in addition to his home metoprolol. Aspirin is also added to his regimen. Social Work setup and inpatient rehab bed for the patient at [facility] on 08/06/16. The patient will have a ride pick him up at his house and take him to the rehabilitation center. TIME SPENT: Total time spent on this discharge 45 minutes. This is a summarized hospitalization. Please see the full medical record for further details. [id number]/[facility] #: [id number] MTDD
== END 2016-08-02 12:45 | disposition home or self-care (01) | DRG 897 ==
LOC: ED 10:32 → MED 18:14 → MEDTELE 19:09
PROVIDERS: ADMIT Internal Medicine; ATTEND Hospitalist
DX: F10.239 Alcohol dependence with withdrawal, unspecified (principal); F14.10 Cocaine abuse, uncomplicated; I47.0 Re-entry ventricular arrhythmia; I25.810 Atherosclerosis of coronary artery bypass graft(s) without angina pectoris; Y90.0 Blood alcohol level of less than 20 mg/100 ml; E03.9 Hypothyroidism, unspecified; B18.2 Chronic viral hepatitis C; I11.9 Hypertensive heart disease without heart failure; M10.9 Gout, unspecified; F12.10 Cannabis abuse, uncomplicated; F17.210 Nicotine dependence, cigarettes, uncomplicated; K25.9 Gastric ulcer, unspecified as acute or chronic, without hemorrhage or perforation; Z95.1 Presence of aortocoronary bypass graft; Z79.899 Other long term (current) drug therapy
CPT/HCPCS: 36415; 80048; 80053; 80301; 80320; 82140; 83735; 84443; 84484; 85025; 85610; 87641; 90686; 90732; 93005; A9270-GY; G0479; G0480; J0360; J1650; J2060; J2405; J3411; J3475

== ENCOUNTER 2017-02-22 06:05 | Emergency (ER) | payer MEDICARE, MEDICAID ==
--- NOTE | 2017-02-22 06:56 | ED ---
Rajni Patel Edward, scribed for Carlos Wyatt MD on 02/22/17 at 0645 . Shortness of Breath - HPI Summary HPI Summary: 62 y/o BIBA c/o SOB starting last night. Patient states he felt like he was choking after eating a cookie before going to bed last night. He woke up in the middle of the night twice and vomited each time. Since then the patient has had difficulty breathing but it is slightly resolved now. Patient rates his discomfort at a 3/10 at triage. Associated sx: cough and sore throat. Patient states he has had episodes like this before. - History of Current Complaint Chief Complaint: EDThroatPain Time Seen by Provider: 02/22/17 06:10 Hx Obtained From: Patient Onset/Duration: Sudden Onset, Lasting Hours - This morning Associated Signs & Symptoms: Cough (Productive) - Allergy/Home Medications Allergies/Adverse Reactions: Allergies Allergy/AdvReac Type Severity Reaction Status Date / Time No Known Allergies Allergy Verified 02/22/17 09:50 Home Medications: Home Medications PARoxetine HCL TAB* [Paxil TAB*] 20 mg PO DAILY 02/22/17 [History Confirmed ] PMH/Surg Hx/FS Hx/Imm Hx Previously Healthy: No Endocrine/Hematology History: Reports: Hx Thyroid Disease Cardiovascular History: Reports: Hx Coronary Artery Disease, Hx Hypertension, Hx Pacemaker/ICD Denies: Other Cardiovascular Problems/Disorders Respiratory History: Reports: Hx Seasonal Allergies Denies: Other Respiratory Problems/Disorders GI History: Reports: Hx Gastroesophageal Reflux Disease, Hx Ulcer - HX ULCERS- SURGICALLY REPAIRED Musculoskeletal History: Reports: Hx Arthritis - HANDS, Hx Back Problems, Hx Gout, Hx Orthopedic Injury, Hx Tendonitis, Other Musculoskeletal History - HX GOUT FOOT AND RIGHT HIP AND FINFERS Sensory History: Reports: Hx Contacts or Glasses - READING Denies: Hx Hearing Aid Opthamlomology History: Reports: Hx Contacts or Glasses - READING Neurological History: Denies: Other Neuro Impairments/Disorders Psychiatric History: Reports: Hx Anxiety - ON MEDS, Hx Depression, Hx Inpatient Treatment - [facility] [place] [facility], Hx Community Mental Health Tx - [facility], Hx Suicide Attempt, Hx Substance Abuse - Alcohol. Lived at [facility] for 8yrs Denies: Hx Attention Deficit Hyperactivity Disorder, Hx Eating Disorder, Hx Panic Disorder, Hx Post Traumatic Stress Disorder, Hx Schizophrenia, Hx Bipolar Disorder, Hx of Violent Episodes Against Others, Other Psychiatric Issues/ Disorders - Surgical History Surgery Procedure, Year, and Place: LUMBAR x3 - LAST ONE 1988. STOMACH ULCER. CARDIAC BYPASS-. HEEL Rt - - THEN REMOVED METAL IN 1986 Hx Anesthesia Reactions: No - Immunization History Date of Tetanus Vaccine: Unk Date of Influenza Vaccine: None Infectious Disease History: No Infectious Disease History: Reports: Hx Hepatitis - HEP B Denies: Hx Clostridium Difficile, Hx Human Immunodeficiency Virus (HIV), Hx of Known/Suspected MRSA, Hx Shingles, Hx Tuberculosis, Hx Known/Suspected VRE, Hx Known/Suspected VRSA, History Other Infectious Disease, Traveled Outside the [place] in Last 30 Days - Family History Known Family History: Positive: Cardiac Disease, Other - alcohol abuse Negative: Hypertension, Diabetes - Social History Alcohol Use: former alcohol abuser Alcohol Amount: last used 6 months ago Hx Substance Use: Yes Substance Use Type: Reports: Cocaine, Marijuana Substance Use Comment - Amount & Last Used: last used 6 months ago Hx Tobacco Use: Yes Smoking Status (MU): Current Every Day Smoker Type: Cigarettes Amount Used/How Often: states stoppe smoking a year ago (05/15) Have You Smoked in the Last Year: Yes Review of Systems Constitutional: Negative Eyes: Negative Positive: Sore Throat Cardiovascular: Negative Positive: Shortness Of Breath, Cough - Productive Gastrointestinal: Negative Genitourinary: Negative Musculoskeletal: Negative Skin: Negative Neurological: Negative Psychological: Normal All Other Systems Reviewed And Are Negative: Yes Physical Exam Triage Information Reviewed: Yes Vital Signs On Initial Exam: Initial Vitals Temp Pulse Resp BP Pulse Ox 97.9 F 55 16 135/45 96 02/22/17 06:09 02/22/17 06:09 02/22/17 06:09 02/22/17 06:09 02/22/17 06:09 Vital Signs Reviewed: Yes Appearance: Positive: Thin - mildly anxious Skin: Positive: Warm Head/Face: Positive: Normal Head/Face Inspection Eyes: Positive: SONJA ENT: Positive: Hearing grossly normal Neck: Positive: Supple Respiratory/Lung Sounds: Positive: Breath Sounds Present Cardiovascular: Positive: RRR Abdomen Description: Positive: Nontender, Soft Bowel Sounds: Positive: Present Musculoskeletal: Positive: Strength/ROM Intact Neurological: Positive: Alert, Oriented to Person Place, Time Psychiatric: Positive: Affect/Mood Appropriate - Bess Coma Scale Coma Scale Total: 15 Diagnostics - Vital Signs Vital Signs Temp Pulse Resp BP Pulse Ox 02/22/17 06:19 97.9 F 77 18 127/106 96 02/22/17 06:09 97.9 F 55 16 135/45 96 - Laboratory Result Diagrams: 02/22/17 07:10 02/22/17 06:10 Lab Statement: Any lab studies that have been ordered have been reviewed, and results considered in the medical decision making process. - EKG 1 EKG Rhythm: Sinus Rhythm - @ 65 bpm EKG Interpretation: 06:25 - Blocked APCs Course/Dx - Course Assessment/Plan: 62 y/o BIBA c/o SOB starting last night. Patient states he felt like he was choking after eating a cookie before going to bed last night. He woke up in the middle of the night twice and vomited each time. Since then the patient has had difficulty breathing but it is slightly resolved now. Patient rates his discomfort at a 3/10 at triage. Associated sx: cough and sore throat. Patient states he has had episodes like this before. Patient signed out to Dr. Bah at shift change. Awaiting CXR results and lab results. - Diagnoses Provider Diagnoses: Choking episode, Chest pain, unspecified, Diaphoresis Discharge - Discharge Plan Condition: Fair Disposition: OTHER Discharge Disposition Comment: Sign out to Dr. Bah at shift change Patient Education Materials: Chest Pain (ED) Referrals: Octaviano Dupree MD [Primary Care Provider] - 2 Days The documentation as recorded by the Rajni givens Edward accurately reflects the service I personally performed and the decisions made by me, Carlos Wyatt MD.
[2017-02-22 07:07] LABS: EGFR African American 97.7 (>60); Globulin 2.7 g/dL (2-4); Potassium 3.4 mmol/L (3.5-5.0); Total Bilirubin 0.3 mg/dL (0.2-1.0); Total Protein 6.7 g/dL (6.4-8.9)
[2017-02-22 07:09] LABS: Troponin I 0.01 ng/mL (<0.04)
[2017-02-22 07:16] LABS: Hematocrit 40 % (42-52); Mean Corpuscular HGB Conc 33 g/dl (31-36); Mean Corpuscular Hemoglobin 31 pg (27-31); Mean Corpuscular Volume 93 fL (80-94); Mean Platelet Volume 11 um3 (7.4-10.4); Red Blood Count 4.25 10^6/ul (4.0-5.4); Red Cell Distribution Width 15 % (10.5-15); White Blood Count 5.7 10^3/ul (3.5-10.8)
--- NOTE | 2017-02-22 07:53 | RAD ---
HISTORY: Shortness of breath COMPARISONS: September 12, 2013 VIEWS: 4: Frontal dual-energy and lateral views of the chest. FINDINGS: CARDIOMEDIASTINAL SILHOUETTE: The cardiomediastinal silhouette is normal. PENG: The peng are normal. PLEURA: The costophrenic angles are sharp. No pleural abnormalities are noted. LUNG PARENCHYMA: There is hyperinflation with flattening of the diaphragm and expansion of the AP diameter of the chest. ABDOMEN: The upper abdomen is clear. There is no subphrenic gas. BONES AND SOFT TISSUES: The patient is status post median sternotomy. OTHER: None. IMPRESSION: HYPERINFLATION, CONSISTENT WITH COPD. NO ACTIVE CARDIOPULMONARY DISEASE.
--- NOTE | 2017-02-22 10:58 | CONSULT ---
Subjective Date of Service: 02/22/17 Interval History: 62 yo M with hx of HTN, CAD, PUD, gout, hx of polysubstance abuse who presents with overnight episodes of coughing/choking, SOB. Patient states he ate a cookie prior to going to bed and thinks maybe he inhaled some of the remaining crumbs overnight. He takes a large dose of Seroquel at bedtime. He woke up SOB and with a choking sensation and began coughing, he subsequently had an episode of emesis with improvement in his symptoms. This happened again later in the night and we decided to come to the hospital for evulation. He denies any new chest pain. On further questioning the patient states this happens quite frequently to him, about 3-4x/week however it usually just happens once but since it happened twice overnight he was more concerned. He says this has been ongoing for years and he has not mentioned it to his PCP. He also reports he wakes up every hour, often wakes himself up snoring. Does not sleep with anyone else present. 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 Family History: Findings - F - lung cancer, M - leukemia Social History: Findings - 1/2 PPD smoker, hx of cocaine use (last in 05/2016), EtOH abuse last used in 08/2016 Past Medical History: Findings - HTN, CAG s/p CABG, PUD, gout, HBV, EtOH, hypothyroidism Review of Systems - Measurements Intake and Output: Intake and Output Last 24 Hours 02/20/17 02/21/17 02/22/17 02/23/17 06:59 06:59 06:59 06:59 Weight 85.729 kg - Review of Systems Constitutional Symptoms: Negative: Fever Dermatology: Positive: Normal HEENT: Positive: Normal Eyes: Positive: Normal Thyroid: Positive: Normal Pulmonary: Positive: Cough, Respiratory Distress Cardiology: Positive: Chest Pain - chronic, unchanged Gastroenterology: Positive: Nausea, Vomiting Genital - Urinary: Positive: Normal Neurology: Positive: Normal Objective Vital Signs 02/22/17 02/22/17 02/22/17 06:09 06:10 06:13 Temperature 97.9 F Pulse Rate 55 60 Respiratory 16 Rate Blood Pressure 135/45 135/45 (mmHg) O2 Sat by Pulse 96 95 Oximetry 02/22/17 02/22/17 02/22/17 06:14 06:19 06:30 Temperature 97.9 F Pulse Rate 63 77 60 Respiratory 18 Rate Blood Pressure 127/106 131/72 (mmHg) O2 Sat by Pulse 96 96 98 Oximetry Oxygen Devices in Use Now: Nasal Cannula - weaned to RA with good O2 sat Appearance: Middle-aged, AAM, laying in bed in NAD Eyes: No Scleral Icterus Ears/Nose/Mouth/Throat: Mucous Membranes Moist Neck: NL Appearance and Movements; NL JVP Respiratory: Symmetrical Chest Expansion and Respiratory Effort, - - Slight ronchi in RLL field, otherwise clear Cardiovascular: NL Sounds; No Murmurs; No JVD, RRR Abdominal: NL Sounds; No Tenderness; No Distention Lymphatic: No Cervical Adenopathy Extremities: No Edema Skin: No Rash or Ulcers Neurological: Alert and Oriented x 3 Result Diagrams: 02/22/17 07:10 02/22/17 06:10 EKG Data: Q waves in V1-V2 (old), T wave flattening/inversion in inferior leads (old), had non-conducted PAC, no further events on tele Assessment/Plan - Billing Nocturnal choking/gasping for air with subsequent coughing and emesis in a 62 yo M with hx of these recurrent episodes as well as HTN, CAD s/p CABG, PUD, gout , history of polysubstance abuse. Symptoms do not seem cardiac in nature, EKG was fairly unremarkable (no other non-conducted PACs on tele) and troponins negative x2. There may have been a bit of aspiration pneumonitis which I don't think necessitates and antibiotics at this point but I think the patient may have underlying FELICITY and would probably benefit from a sleep study. He was encouraged to follow-up with Dr. Dupree and discuss his symptoms with him (which he has not done despite these ongoing symptoms for years). Counseling and/or Coordination of Care Minutes: 40 with >50% spent [id number] with the patient
[2017-02-22 11:06] VITALS: BP 143/59
--- NOTE | 2017-02-23 10:27 | ED ---
Devin Patel Auryana, scribed for Lee Bah MD on 02/22/17 at 0928 . Progress - Progress Note Progress Note: SIGN OUT TO DR. BAH AT 07:00 PENDING CXR AND FURTHER WORKUP/MANAGEMENT 62 year old male presents with throat pain starting last night. Patient reports that he had a cookie before bed and then woke up feeling like he was choking unable to catch his breath, and vomited. He reports that when he was able to catch his breath last night, he went back to bed. Upon waking up, his symptoms did not improve. He does report dyspnea, and pain in the throat. He denies any chest pain, tightness, or pressure in the chest. PMHx is significant for CABG, HTN, and HLD, but denies any history of DM. Physical Exam : Constitutional: Well-developed, Well-nourished, Alert. (-) Distressed Skin: Warm, Dry HENT: Normocephalic; Atraumatic Eyes: Conjunctiva normal Neck: Musculoskeletal ROM normal neck. (-) JVD, (-) Stridor, (-) Tracheal deviation Cardio: Rhythm regular, rate normal, Heart sounds normal; Intact distal pulses; The pedal pulses are 2+ and symmetric. Radial pulses are 2+ and symmetric. (-) Murmur Pulmonary/Chest wall: Effort normal. (-) Respiratory distress, (-) Wheezes, (-) Rales Abd: Soft, (-) Tenderness, (-) Distension, (-) Guarding, (-) Rebound Musculoskeletal: (-) Edema Lymph: (-) Cervical adenopathy Neuro: Alert, Oriented x3 Psych: Mood and affect Normal DDx: choking episode, aspiration, angina, ACS - Results/Orders Results/Orders: CXR - IMPRESSION: HYPERINFLATION, CONSISTENT WITH COPD. NO ACTIVE CARDIOPULMONARY DISEASE. Course/Dx - Course Course Of Treatment: SIGN OUT TO DR. BAH AT 07:00 PENDING CXR AND FURTHER WORKUP/MANAGEMENT. 62 year old male presents with throat pain starting last night. Patient reports that he had a cookie before bed and then woke up feeling like he was choking unable to catch his breath, and vomited. He reports that when he was able to catch his breath last night, he went back to bed. Upon waking up, his symptoms did not improve. He does report dyspnea, and pain in the throat. He denies any chest pain, tightness, or pressure in the chest. PMHx is significant for CABG, HTN, and HLD, but denies any history of DM. Physical exam was normal. Blood work shows Hgb 13.0, Hct 40, potassium 3.4, glucose of 144, and troponin 0.01. EKG - Sinus Rhythm @ 65 bpm with blocked APCs. CXR - IMPRESSION: HYPERINFLATION, CONSISTENT WITH COPD. NO ACTIVE CARDIOPULMONARY DISEASE. I discussed the patient with Dr. Campos. He consulted the patient for admission and felt that he is stable to be discharged home. Patient is agreeable to this plan. DDx: choking episode, aspiration, angina, ACS. DX: choking episode, chest pain unspecified, diaphoresis. - Diagnoses Provider Diagnoses: Diaphoresis, Chest pain, unspecified, Choking episode - Provider Notifications Discussed Care Of Patient With: Howard Campos Time Discussed With Above Provider: 09:32 - agrees to evaluation for admission Instructed by Provider To: Will See In ED The documentation as recorded by the Devin givens Auryana accurately reflects the service I personally performed and the decisions made by me, Lee Bah MD.
== END 2017-02-22 11:34 ==
LOC: ED 06:05
DX: R61 Generalized hyperhidrosis (principal); R07.89 Other chest pain; R09.89 Other specified symptoms and signs involving the circulatory and respiratory systems; R05 Cough; E07.9 Disorder of thyroid, unspecified; I25.10 Atherosclerotic heart disease of native coronary artery without angina pectoris; I10 Essential (primary) hypertension; Z95.1 Presence of aortocoronary bypass graft; Z95.0 Presence of cardiac pacemaker; K21.9 Gastro-esophageal reflux disease without esophagitis; F41.9 Anxiety disorder, unspecified; F32.9 Major depressive disorder, single episode, unspecified; Z72.0 Tobacco use
CPT/HCPCS: 36415; 71020; 80053; 84484; 85025; 93005; 99283

== ENCOUNTER → 2018-02-23 01:55 | Emergency (ER) | payer MEDICARE, MEDICAID ==
[~2018-02-23 01:55] MED LIST: Ketorolac INJ* 15 MG/ML 1 ML VIAL IV PUSH ONE; LORazepam INJ* 2 MG/ML 1 ML VIAL IV PUSH ONE; NS 0.9% 1000 ML* 1,000 ML IV ONE
--- NOTE | 2018-02-23 03:00 | ED ---
Abdominal Pain/Male - HPI Summary HPI Summary: [facility] Liz Cordero [facility]. Pt BEATRICE is a 63 y/o M c/o abd pain onset ~2 hours ago. Per triage, he rates the pain a 10/10 and describes it as cramping. Assoc. Sx: Nausea. Denies: Vomiting, diarrhea. Aggr. factors: ambulation. Per triage, he took 1 dose of seroquel prior. - History of Current Complaint Chief Complaint: EDAbdPain Stated Complaint: OVERDOSE Hx Obtained From: Patient Onset/Duration: Sudden Onset, Lasting Hours - 2 hours, Still Present Timing: Constant Severity Currently: Severe Pain Intensity: 10 Pain Scale Used: 0-10 Numeric Location: Other - abdominal Radiates: No Character: Cramping Aggravating Factor(s): Movement Alleviating Factor(s): Nothing Associated Signs And Symptoms: Positive: Nausea, Diarrhea. Negative: Vomiting - Allergies/Home Medications Allergies/Adverse Reactions: Allergies Allergy/AdvReac Type Severity Reaction Status Date / Time No Known Allergies Allergy Verified 02/22/17 09:50 PMH/Surg Hx/FS Hx/Imm Hx Endocrine/Hematology History: Reports: Hx Thyroid Disease Cardiovascular History: Reports: Hx Coronary Artery Disease, Hx Hypertension, Hx Pacemaker/ICD Denies: Other Cardiovascular Problems/Disorders Respiratory History: Reports: Hx Asthma, Hx Seasonal Allergies Denies: Other Respiratory Problems/Disorders GI History: Reports: Hx Gastroesophageal Reflux Disease, Hx Ulcer - HX ULCERS- SURGICALLY REPAIRED Musculoskeletal History: Reports: Hx Arthritis - HANDS, Hx Back Problems, Hx Gout, Hx Orthopedic Injury, Hx Tendonitis, Other Musculoskeletal History - HX GOUT FOOT AND RIGHT HIP AND FINFERS Sensory History: Reports: Hx Contacts or Glasses - READING Denies: Hx Hearing Aid Opthamlomology History: Reports: Hx Contacts or Glasses - READING Neurological History: Denies: Other Neuro Impairments/Disorders Psychiatric History: Reports: Hx Anxiety - ON MEDS, Hx Depression, Hx Inpatient Treatment - [facility], Hx Community Mental Health Tx - [facility], Hx Suicide Attempt, Hx Substance Abuse - Alcohol. Lived at [facility] for 8yrs Denies: Hx Attention Deficit Hyperactivity Disorder, Hx Eating Disorder, Hx Panic Disorder, Hx Post Traumatic Stress Disorder, Hx Schizophrenia, Hx Bipolar Disorder, Hx of Violent Episodes Against Others, Other Psychiatric Issues/ Disorders - Surgical History Surgery Procedure, Year, and Place: LUMBAR x3 - LAST ONE 1988. STOMACH ULCER. CARDIAC BYPASS-. HEEL Rt - - THEN REMOVED METAL IN 1986 Hx Anesthesia Reactions: No - Immunization History Date of Tetanus Vaccine: Unk Date of Influenza Vaccine: None Infectious Disease History: No Infectious Disease History: Reports: Hx Hepatitis - HEP B Denies: Hx Clostridium Difficile, Hx Human Immunodeficiency Virus (HIV), Hx of Known/Suspected MRSA, Hx Shingles, Hx Tuberculosis, Hx Known/Suspected VRE, Hx Known/Suspected VRSA, History Other Infectious Disease, Traveled Outside the [place] in Last 30 Days - Family History Known Family History: Positive: Cardiac Disease, Other - alcohol abuse Negative: Hypertension, Diabetes - Social History Occupation: Disabled Lives: With Family Alcohol Use: Occasionally Alcohol Amount: last used 6 months ago Hx Substance Use: Yes Substance Use Type: Reports: Cocaine, Marijuana Substance Use Comment - Amount & Last Used: last used 6 months ago Hx Tobacco Use: Yes Smoking Status (MU): Current Every Day Smoker Type: Cigarettes Amount Used/How Often: states stoppe smoking a year ago (05/15) Have You Smoked in the Last Year: Yes Review of Systems Negative: Fever Positive: Abdominal Pain - cramping, Diarrhea, Nausea. Negative: Vomiting All Other Systems Reviewed And Are Negative: Yes Physical Exam - Summary Physical Exam Summary: VITAL SIGNS: Reviewed. GENERAL: Patient is a well-developed and nourished male who is lying comfortable in the stretcher. Patient is not in any acute respiratory distress. HEAD AND FACE: No signs of trauma. No ecchymosis, hematomas or skull depressions. No sinus tenderness. EYES: PERRLA, EOMI x 2, No injected conjunctiva, no nystagmus. EARS: Hearing grossly intact. Ear canals and tympanic membranes are within normal limits. MOUTH: Oropharynx within normal limits. NECK: Supple, trachea is midline, no adenopathy, no JVD, no carotid bruit, no c- spine tenderness, neck with full ROM. CHEST: Symmetric, no tenderness at palpation LUNGS: Clear to auscultation bilaterally. No wheezing or crackles. CVS: Regular rate and rhythm, S1 and S2 present, no murmurs or gallops appreciated. ABDOMEN: Soft, non-tender. No signs of distention. No rebound no guarding, and no masses palpated. Bowel sounds are normal. EXTREMITIES: FROM in all major joints, no edema, no cyanosis or clubbing. NEURO: Alert and oriented x 3. No acute neurological deficits. Speech is normal and follows commands. SKIN: Dry and warm Triage Information Reviewed: Yes Vital Signs On Initial Exam: Initial Vitals Temp Pulse Resp BP Pulse Ox 96.8 F 70 18 91/52 98 02/23/18 02:08 02/23/18 02:08 02/23/18 02:08 02/23/18 02:08 02/23/18 02:08 Vital Signs Reviewed: Yes Diagnostics - Vital Signs Vital Signs Temp Pulse Resp BP Pulse Ox 02/23/18 02:11 68 100 02/23/18 02:09 91/52 02/23/18 02:08 96.8 F 70 18 91/52 98 - Laboratory Result Diagrams: 02/23/18 03:41 02/23/18 03:41 Lab Statement: Any lab studies that have been ordered have been reviewed, and results considered in the medical decision making process. Abdominal Pain Fem Course/Dx - Course Course Of Treatment: Pt was seen by provider regarding abd cramping. Pt was medically cleared and will be D/C home. - Diagnoses Provider Diagnoses: Rhabdomyolysis Discharge - Sign-Out/Discharge Documenting (check all that apply): Patient Departure - Discharge Plan Condition: Stable Disposition: HOME Patient Education Materials: Rhabdomyolysis (ED) Referrals: Octaviano Dupree MD [Primary Care Provider] - 2 Days Additional Instructions: RETURN TO THE EMERGENCY DEPARTMENT FOR CHANGING OR WORSENING SYMPTOMS.
[2018-02-23 03:52] LABS: ABS Basophils 0 10^3/ul (0-0.2); ABS Eosinophils 0.2 10^3/ul (0-0.6); ABS Lymphocytes 1.3 10^3/ul (1.0-4.8); ABS Monocytes 0.7 10^3/ul (0-0.8); ABS Neutrophils 4.4 10^3/ul (1.5-7.7); ABS Nucleated RBC 0 10^3/ul; Eosinophil % 2.4 % (0-6); Hematocrit 42 % (42-52); Hemoglobin 14.1 g/dl (14.0-18.0); Lymphocyte % 19.4 % (25-47); Mean Corpuscular HGB Conc 34 g/dl (31-36); Mean Corpuscular Hemoglobin 32 pg (27-31); Mean Corpuscular Volume 94 fL (80-94); Mean Platelet Volume 10.3 um3 (7.4-10.4); Nucleated Red Blood Cells % 0; Platelet Count 188 10^3/ul (150-450); Red Blood Count 4.47 10^6/ul (4.00-5.40); Red Cell Distribution Width 15 % (10.5-15); White Blood Count 6.6 10^3/ul (3.5-10.8)
[2018-02-23 04:07] LABS: EGFR Non-African American 46.4 (>60)
[2018-02-23 06:51] VITALS: BP 107/68
== END | disposition home or self-care (01) ==
LOC: ED 01:55
DX: M62.82 Rhabdomyolysis (principal); F17.210 Nicotine dependence, cigarettes, uncomplicated; K21.9 Gastro-esophageal reflux disease without esophagitis; I25.10 Atherosclerotic heart disease of native coronary artery without angina pectoris; I10 Essential (primary) hypertension
CPT/HCPCS: 36415; 80053; 82550; 83605; 85025; 86140; 96361; 96374; 96375; 99284; J1885; J2060

== ENCOUNTER 2018-05-27 00:10 | Emergency (ER) | payer MEDICARE, MEDICAID ==
[2018-05-27] MEDS ORDERED: NS 0.9% 1000 ML* 1,000 ML IV ONE ×3 (01:01→02:39)
[2018-05-27 01:25] LABS: Urine Appearance Cloudy; Urine Blood Negative (Negative); Urine Color Yellow; Urine Ketones Negative (Negative); Urine Protein Negative (Negative); Urine Specific Gravity 1.004 (1.010-1.030); Urine Urobilinogen Negative (Negative)
--- NOTE | 2018-05-27 01:43 | ED ---
Substance Abuse/Use - HPI Summary HPI Summary: This patient is a 63 year old M presenting to [facility] requesting etoh detox he states he stopped drinking a few hours ago. The patient rates the pain 5/10 in severity. Patient reports diffuse abd pain, nausea, and GOLDSTEIN. Patient denies vomiting, double vision, blurry vision, SOB, CP, back pain increased from baseline, edema, bruising, sore throat, and rashes. He states he drinks 7-24 ounce cans daily. 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 Pt reports shakes from short cessations of drinking but has never had a seizure. Took 200 mg Seroquel tonight. Feels like he wants to leave his body. - History Of Current Complaint Chief Complaint: EDSubstanceAbuse Stated Complaint: GENERAL Hx Obtained From: Patient Ingestion History: Type/Name Of Drug - eoth Overdose Characteristics: Oral Timing Of Abuse: Daily Severity Initially: Moderate Severity Currently: Moderate Associated Signs And Symptoms: Negative - vomiting, double vision, blurry vision, SOB, CP, back pain increased from baseline, edema, bruising, and rashes. - Allergies/Home Medications Allergies/Adverse Reactions: Allergies Allergy/AdvReac Type Severity Reaction Status Date / Time No Known Allergies Allergy Verified 05/27/18 01:05 PMH/Surg Hx/FS Hx/Imm Hx Endocrine/Hematology History: Reports: Hx Thyroid Disease Cardiovascular History: Reports: Hx Coronary Artery Disease, Hx Hypertension, Hx Pacemaker/ICD Denies: Other Cardiovascular Problems/Disorders Respiratory History: Reports: Hx Asthma, Hx Seasonal Allergies Denies: Other Respiratory Problems/Disorders GI History: Reports: Hx Gastroesophageal Reflux Disease, Hx Ulcer - HX ULCERS- SURGICALLY REPAIRED Musculoskeletal History: Reports: Hx Arthritis - HANDS, Hx Back Problems, Hx Gout, Hx Orthopedic Injury, Hx Tendonitis, Other Musculoskeletal History - HX GOUT FOOT AND RIGHT HIP AND FINFERS Sensory History: Reports: Hx Contacts or Glasses - READING Denies: Hx Hearing Aid Opthamlomology History: Reports: Hx Contacts or Glasses - READING Neurological History: Denies: Other Neuro Impairments/Disorders Psychiatric History: Reports: Hx Anxiety - ON MEDS, Hx Depression, Hx Inpatient Treatment - [facility], Hx Community Mental Health Tx - [facility], Hx Suicide Attempt, Hx Substance Abuse - Alcohol. Lived at [facility] for 8yrs Denies: Hx Attention Deficit Hyperactivity Disorder, Hx Eating Disorder, Hx Panic Disorder, Hx Post Traumatic Stress Disorder, Hx Schizophrenia, Hx Bipolar Disorder, Hx of Violent Episodes Against Others, Other Psychiatric Issues/ Disorders - Surgical History Surgery Procedure, Year, and Place: LUMBAR x3 - LAST ONE 1988. STOMACH ULCER. CARDIAC BYPASS-. HEEL Rt - - THEN REMOVED METAL IN 1986 Hx Anesthesia Reactions: No - Immunization History Date of Tetanus Vaccine: Unk Date of Influenza Vaccine: None Infectious Disease History: No Infectious Disease History: Reports: Hx Hepatitis - HEP B Denies: Hx Clostridium Difficile, Hx Human Immunodeficiency Virus (HIV), Hx of Known/Suspected MRSA, Hx Shingles, Hx Tuberculosis, Hx Known/Suspected VRE, Hx Known/Suspected VRSA, History Other Infectious Disease, Traveled Outside the [place] in Last 30 Days - Family History Known Family History: Positive: Cardiac Disease, Other - alcohol abuse Negative: Hypertension, Diabetes - Social History Alcohol Use: Daily Alcohol Amount: last used 6 months ago Hx Substance Use: Yes Substance Use Type: Reports: Marijuana Substance Use Comment - Amount & Last Used: occasionally Hx Tobacco Use: Yes Smoking Status (MU): Heavy Every Day Tobacco Smoker Type: Cigarettes Amount Used/How Often: states stoppe smoking a year ago (05/15) Have You Smoked in the Last Year: Yes Review of Systems Negative: Blurred Vision Negative: Sore Throat Negative: Chest Pain Negative: Shortness Of Breath Positive: Abdominal Pain, Nausea. Negative: Vomiting Musculoskeletal: Negative - back pain Negative: Edema Negative: Rash, Bruising Positive: Headache All Other Systems Reviewed And Are Negative: No Physical Exam - Summary Physical Exam Summary: Appearance: Alert, conversive, nontoxic appearing ,smells of alchohol Skin: Warm, dry, no mottling, no rashes, no contusions HEENT: EOMI, PERRL, dry mucus membranes Neck: No masses on the neck, supple Respiratory: Clear to auscultation, breath sounds present, no rales, no rhonchi , no wheezes Cardiovascular: RRR, pulses are symmetrical in both lower and upper extremities Abdomen: Soft, ttp in epigastria Bowel Sounds: Present Musculoskeletal: No CVA tenderness, no obvious deformity, moving all extremities in a grossly normal manner Neurological: A&Ox3, CN II-XII Intact, moving all extremities symmetrically Psychiatric: Normal affect and mood Triage Information Reviewed: Yes Vital Signs On Initial Exam: Initial Vitals Temp Pulse Resp BP Pulse Ox 98.5 F 95 16 96/51 98 05/27/18 00:14 05/27/18 00:14 05/27/18 00:14 05/27/18 00:14 05/27/18 00:14 Vital Signs Reviewed: Yes Diagnostics - Vital Signs Vital Signs Temp Pulse Resp BP Pulse Ox 05/27/18 00:14 98.5 F 95 16 96/51 98 - Laboratory Lab Results: Lab Results 05/27/18 Range/Units 01:15 Urine Color Yellow Urine Appearance Cloudy Urine pH 5.0 (5-9) Ur Specific [place] 1.004 L (1.010-1.030) Urine Protein Negative (Negative) Urine Ketones Negative (Negative) Urine Blood Negative (Negative) Urine Nitrate Negative (Negative) Urine Bilirubin Negative (Negative) Urine Urobilinogen Negative (Negative) Ur Leukocyte Esterase Negative (Negative) Urine Glucose Negative (Negative) Result Diagrams: 05/27/18 01:40 05/27/18 01:40 Lab Statement: Any lab studies that have been ordered have been reviewed, and results considered in the medical decision making process. Re-Evaluation - Re-Evaluation First Eval Re-Evaluation Time: 02:49 Change: Unchanged Comment: Pt was informed that he cannot be admitted for detox unless he is experiencing sx of withdrawal. Course/Dx - Course Assessment/Plan: This patient is a 63 year old M presenting to [facility] requesting etoh detox he states he stopped drinking a few hours ago. The patient rates the pain 5/10 in severity. Patient reports diffuse abd pain, nausea, and GOLDSTEIN. Patient denies vomiting, double vision, blurry vision, SOB, CP, back pain increased from baseline, edema, bruising, sore throat, and rashes. He states he drinks 7-24 ounce cans daily. 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 Pt reports shakes from short cessations of drinking but has never had a seizure. Took 200 mg Seroquel tonight. Feels like he wants to leave his body.. The patient is not tachycardic, there is no indication for admission, he was given all the information needed for rehab and out patient f/u. Blood work obtained. Patient will be discharged and follow up from Dr. Dupree. The patient is agreeable with this plan. - Diagnoses Provider Diagnoses: AA (alcohol abuse), Alcohol dependence, Abdominal pain Discharge - Sign-Out/Discharge Documenting (check all that apply): Patient Departure - Discharge Plan Condition: Stable Disposition: HOME Patient Education Materials: Acute Abdominal Pain (ED), Alcohol Dependence (ED) Referrals: Octaviano Dupree MD [Primary Care Provider] - Additional Instructions: PLease start attending a drug and rehab program. please follow up with your doctor tomorrow. it is important to get involved with a rehab program immediately. return if worse or any new symptoms. - Billing Disposition and Condition Condition: STABLE Disposition: Home - Attestation Statements Document Initiated by Scribe: Yes Documenting Scribe: Jass Thayer Provider For Whom Scribe is Documenting (Include Credential): Elaine Hinojosa MD Scribe Attestation: Jass Patle, scribed for Elaine Hinojosa MD on 05/27/18 at 0324. Scribe Documentation Reviewed: Yes Provider Attestation: The documentation as recorded by the Jass givens accurately reflects the service I personally performed and the decisions made by Elaine verde MD
[2018-05-27 01:48] LABS: ABS Basophils 0.1 10^3/ul (0-0.2); ABS Eosinophils 0.3 10^3/ul (0-0.6); ABS Lymphocytes 1.7 10^3/ul (1.0-4.8); ABS Monocytes 0.7 10^3/ul (0-0.8); ABS Neutrophils 4.5 10^3/ul (1.5-7.7); ABS Nucleated RBC 0 10^3/ul; Eosinophil % 3.9 % (0-6); Hematocrit 37 % (42-52); Hemoglobin 12.5 g/dl (14.0-18.0); Lymphocyte % 23.8 % (25-47); Mean Corpuscular HGB Conc 34 g/dl (31-36); Mean Corpuscular Hemoglobin 32 pg (27-31); Mean Corpuscular Volume 95 fL (80-94); Mean Platelet Volume 9.7 um3 (7.4-10.4); Nucleated Red Blood Cells % 0.1; Platelet Count 194 10^3/ul (150-450); Red Blood Count 3.89 10^6/ul (4.00-5.40); Red Cell Distribution Width 15 % (10.5-15); White Blood Count 7.2 10^3/ul (3.5-10.8)
[2018-05-27 02:04] LABS: EGFR Non-African American 58.5 (>60)
[2018-05-27] MEDS ORDERED: Pantoprazole IV* 40 MG IV ONE (02:39)
[2018-05-27 03:27] VITALS: BP 147/83
== END 2018-05-27 03:28 | disposition home or self-care (01) ==
LOC: ED 00:10
DX: F10.20 Alcohol dependence, uncomplicated (principal); R10.84 Generalized abdominal pain; R11.0 Nausea; R51 Headache; I25.10 Atherosclerotic heart disease of native coronary artery without angina pectoris; I10 Essential (primary) hypertension; Z95.1 Presence of aortocoronary bypass graft; Z95.810 Presence of automatic (implantable) cardiac defibrillator; F41.9 Anxiety disorder, unspecified; Z87.891 Personal history of nicotine dependence
CPT/HCPCS: 36415; 80053; 80307; 80320; 81003; 83605; 83690; 83735; 84443; 85025; 96361; 96374; 99283; G0480

== ENCOUNTER 2018-07-05 19:28 | Emergency (ER) | payer MEDICARE, MEDICAID ==
[2018-07-05] MEDS ORDERED: methylPREDNISolone 125 MG* 2 ML VIAL IV ONE (23:45)
[2018-07-05] MEDS ORDERED: Albuterol 2.5 MG/3 ML NEB.SOL* (0.083%) INH ONE (23:45)
[2018-07-05] MEDS ORDERED: Albuterol/Ipratropium NEB.SOL* Albuterol 2.5 MG/Ipratropium 0.5 MG 3 ML INH ONE (23:45)
[2018-07-05] MEDS ORDERED: Magnesium Sulfate 2 GM IV* 2 GM/50 ML BAG IVPB ONE (23:46)
[2018-07-05] MEDS ORDERED: hydrALAZINE IV* 20 MG/ML VIAL IV SLOW PU ONE (23:46)
[2018-07-05] MEDS ORDERED: Ondansetron INJ* 2 MG/ML VIAL IV ONE (23:46)
--- NOTE | 2018-07-05 23:46 | ED ---
Influenza-Like Illness - HPI Summary HPI Summary: This patient is a 63 year old M [facility] by a female with a chief complaint of flu like sx that began this morning. The patient rates the pain 6/10 in severity. Patient reports chills, SOB, GOLDSTEIN, nausea, sore throat, and cough. Patient denies fever. Pt is currently an everyday smoker. - History of Current Complaint Chief Complaint: EDFluSymptoms Time Seen by Provider: 07/05/18 23:37 Hx Obtained From: Patient Onset/Duration: Lasting Hours, Still Present Severity: Mild Associated Signs & Symptoms: Cough, Headache - Allergy/Home Medications Allergies/Adverse Reactions: Allergies Allergy/AdvReac Type Severity Reaction Status Date / Time No Known Allergies Allergy Verified 07/05/18 19:53 PMH/Surg Hx/FS Hx/Imm Hx Endocrine/Hematology History: Reports: Hx Thyroid Disease Cardiovascular History: Reports: Hx Coronary Artery Disease, Hx Hypertension, Hx Pacemaker/ICD Denies: Other Cardiovascular Problems/Disorders Respiratory History: Reports: Hx Asthma, Hx Seasonal Allergies Denies: Other Respiratory Problems/Disorders GI History: Reports: Hx Gastroesophageal Reflux Disease, Hx Ulcer - HX ULCERS- SURGICALLY REPAIRED Musculoskeletal History: Reports: Hx Arthritis - HANDS, Hx Back Problems, Hx Gout, Hx Orthopedic Injury, Hx Tendonitis, Other Musculoskeletal History - HX GOUT FOOT AND RIGHT HIP AND FINFERS Sensory History: Reports: Hx Contacts or Glasses - READING Denies: Hx Hearing Aid Opthamlomology History: Reports: Hx Contacts or Glasses - READING Neurological History: Denies: Other Neuro Impairments/Disorders Psychiatric History: Reports: Hx Anxiety - ON MEDS, Hx Depression, Hx Inpatient Treatment - [facility], [facility], Hx Suicide Attempt, Hx Substance Abuse - Alcohol. Lived at [facility] for 8yrs Denies: Hx Attention Deficit Hyperactivity Disorder, Hx Eating Disorder, Hx Panic Disorder, Hx Post Traumatic Stress Disorder, Hx Schizophrenia, Hx Bipolar Disorder, Hx of Violent Episodes Against Others, Other Psychiatric Issues/ Disorders - Surgical History Surgery Procedure, Year, and Place: LUMBAR x3 - LAST ONE 1988. STOMACH ULCER. CARDIAC BYPASS-. HEEL Rt - - THEN REMOVED METAL IN 1986 Hx Anesthesia Reactions: No - Immunization History Date of Tetanus Vaccine: Unk Date of Influenza Vaccine: None Infectious Disease History: No Infectious Disease History: Reports: Hx Hepatitis - HEP B Denies: Hx Clostridium Difficile, Hx Human Immunodeficiency Virus (HIV), Hx of Known/Suspected MRSA, Hx Shingles, Hx Tuberculosis, Hx Known/Suspected VRE, Hx Known/Suspected VRSA, History Other Infectious Disease, Traveled Outside the [place] in Last 30 Days - Family History Known Family History: Positive: Cardiac Disease, Other - alcohol abuse Negative: Hypertension, Diabetes - Social History Lives: With Family Alcohol Use: Daily Alcohol Amount: last used 6 months ago Hx Substance Use: Yes Substance Use Type: Reports: Marijuana Substance Use Comment - Amount & Last Used: occasionally Hx Tobacco Use: Yes Smoking Status (MU): Heavy Every Day Tobacco Smoker Type: Cigarettes Amount Used/How Often: states stoppe smoking a year ago (05/15) Have You Smoked in the Last Year: Yes Review of Systems Positive: Chills. Negative: Fever Positive: Sore Throat Positive: Shortness Of Breath, Cough Positive: Nausea Positive: Headache All Other Systems Reviewed And Are Negative: Yes Physical Exam - Summary Physical Exam Summary: VITAL SIGNS: Reviewed. GENERAL: Patient is a well-developed and nourished male who is lying comfortable in the stretcher. Patient is not in any acute respiratory distress. HEAD AND FACE: No signs of trauma. No ecchymosis, hematomas or skull depressions. No sinus tenderness. EYES: PERRLA, EOMI x 2, No injected conjunctiva, no nystagmus. EARS: Hearing grossly intact. Ear canals and tympanic membranes are within normal limits. MOUTH: Oropharynx within normal limits. NECK: Supple, trachea is midline, no adenopathy, no JVD, no carotid bruit, no c- spine tenderness, neck with full ROM. CHEST: Symmetric, no tenderness at palpation LUNGS: He has mild decreased breath sound bilaterally CVS: Regular rate and rhythm, S1 and S2 present, no murmurs or gallops appreciated. ABDOMEN: Soft, non-tender. No signs of distention. No rebound no guarding, and no masses palpated. Bowel sounds are normal. EXTREMITIES: FROM in all major joints, no edema, no cyanosis or clubbing. NEURO: Alert and oriented x 3. No acute neurological deficits. Speech is normal and follows commands. SKIN: Dry and warm Triage Information Reviewed: Yes Vital Signs On Initial Exam: Initial Vitals Temp Pulse Resp BP Pulse Ox 98.6 F 56 16 178/97 98 07/05/18 19:48 07/05/18 19:48 07/05/18 19:48 07/05/18 19:48 07/05/18 19:48 Vital Signs Reviewed: Yes Diagnostics - Vital Signs Vital Signs Temp Pulse Resp BP Pulse Ox 07/05/18 21:55 97.8 F 62 20 182/90 95 07/05/18 19:48 98.6 F 56 16 178/97 98 - Laboratory Result Diagrams: 07/06/18 00:08 07/06/18 00:08 Lab Statement: Any lab studies that have been ordered have been reviewed, and results considered in the medical decision making process. - Radiology CXR Radiology Interpretation Completed By: ED Physician Summary of Radiographic Findings: no acute process. Pending official report. Re-Evaluation - Re-Evaluation First Eval Re-Evaluation Time: 01:07 Change: Improved - The patients BP is improving in the ED. Currently it is 140/ 71. Flu Symptom Course/Dx - Course Assessment/Plan: This patient is a 63 year old M presenting to [facility] accompanied by a female with a chief complaint of flu like sx that began this morning. The patient rates the pain 6/10 in severity. Patient reports chills, SOB, GOLDSTEIN, nausea, sore throat, and cough. Patient denies fever. Pt is currently an everyday smoker. CXR reveals, no acute process. Pending official report. The patient was negative for influenza A and B in the ED. Blood work obtained. Patient will be discharged with prescription for levaquin, prednisone, and albuterol and follow up from PCP. The patient is agreeable with this plan. - Diagnoses Provider Diagnoses: Acute bronchitis Discharge - Sign-Out/Discharge Documenting (check all that apply): Patient Departure - Discharge Plan Condition: Stable Disposition: HOME Prescriptions: Albuterol HFA INHALER* [Ventolin HFA Inhaler*] 2 puff INH Q6H PRN #1 mdi PRN Reason: Sob/Wheezing Levofloxacin TAB* [Levaquin TAB*] 750 mg PO DAILY #7 tab predniSONE [Prednisone 20 MG TAB] 40 mg PO DAILY #6 tablet Patient Education Materials: Bronchospasm (ED), How Your Lungs Work (ED) Referrals: Octaviano Dupree MD [Primary Care Provider] - Additional Instructions: Follow up with your primary care physician in 1-3 days. RETURN TO THE EMERGENCY DEPARTMENT FOR CHANGING OR WORSENING SYMPTOMS. - Attestation Statements Document Initiated by Scribe: Yes Documenting Scribe: Jass Thayer Provider For Whom Scribe is Documenting (Include Credential): Liz Cordero MD Scribe Attestation: IJass , scribed for Liz Cordero MD on 07/06/18 at 0125. Status of Scribe Document: Ready
[2018-07-06 00:15] LABS: Hematocrit 43 % (42-52); Hemoglobin 14.2 g/dl (14.0-18.0); Mean Corpuscular HGB Conc 33 g/dl (31-36); Mean Corpuscular Hemoglobin 31 pg (27-31); Mean Corpuscular Volume 94 fL (80-94); Mean Platelet Volume 10.1 fL (7.4-10.4); Platelet Count 207 10^3/ul (150-450); Red Blood Count 4.55 10^6/ul (4.00-5.40); Red Cell Distribution Width 14 % (10.5-15); White Blood Count 6.3 10^3/ul (3.5-10.8)
[2018-07-06 00:30] LABS: EGFR Non-African American 74.9 (>60)
[2018-07-06 01:07] LABS: ABS Basophils 0.1 10^3/ul (0-0.2); ABS Eosinophils 0.5 10^3/ul (0-0.6); ABS Lymphocytes 1.3 10^3/ul (1.0-4.8); ABS Monocytes 1.1 10^3/ul (0-0.8); ABS Neutrophils 3.4 10^3/ul (1.5-7.7); ABS Nucleated RBC 0 10^3/ul; Eosinophil % 7.7 %; Lymphocyte % 20.1 %; Nucleated Red Blood Cells % 0.1
[2018-07-06] MEDS ORDERED: Levofloxacin TAB* 250 MG PO ONE (01:21)
[2018-07-06 02:04] VITALS: BP 144/79
== END 2018-07-06 02:01 | disposition home or self-care (01) ==
LOC: ED 19:28
DX: J20.9 Acute bronchitis, unspecified (principal); I25.10 Atherosclerotic heart disease of native coronary artery without angina pectoris; I10 Essential (primary) hypertension; Z95.1 Presence of aortocoronary bypass graft; F41.9 Anxiety disorder, unspecified; Z95.810 Presence of automatic (implantable) cardiac defibrillator; Z82.49 Family history of ischemic heart disease and other diseases of the circulatory system; Z81.1 Family history of alcohol abuse and dependence; Z87.891 Personal history of nicotine dependence
CPT/HCPCS: 36415; 71045; 80053; 85025; 86140; 96365; 96375; 99283; A9270-GY; J0360; J2405; J2930; J3475

== ENCOUNTER 2019-06-19 02:23 | Emergency (ER) | payer MEDICARE, MEDICAID ==
--- NOTE | 2019-06-19 03:38 | ED ---
Back Pain - HPI Summary HPI Summary: This pt is a 64 Y/O M presenting to [facility] with a CC of back pain that started on 06/15/19 and has been rated an 8/10 in severity. He states that his back waxes and wanes and his legs have been cramping. He states that the pain today extended down to his feet while he was mopping and sweeping at work. He states that his leg pain is located in the center of his back. He states that he currently doesnt have any pain since he received toradol en route. he also took his nightly medications. He states that his symptoms are aggravated when he lies down for too long. He denies any decrease in his bladder or bowels, N/V , headaches, upper extremity decrease in ROM, and fevers. He states that he has a Hx of 3 different lumbar surgeries. - History of Current Complaint Chief Complaint: EDBackInjuryPain Stated Complaint: BACK PAIN PER EMS Time Seen by Provider: 06/19/19 02:50 Hx Obtained From: Patient Onset/Duration: Sudden Onset, Resolved Onset/Duration: Started Hours Ago - 2, Resolved Timing: Intermittent Back Pain Location: Is Discrete @ - Low back Severity Initially: Severe Severity Currently: Severe Pain Intensity: 8 Pain Scale Used: 0-10 Numeric Character: Stiffness Aggravating Symptom(s): Other - lying down Alleviating Symptom(s): Other - prescription medications Associated Signs And Symptoms: Positive: Negative - N/V, headaches, upper extremity decrease in ROM, Numbness. Negative: Fever, Bladder Incontinence, Bowel Incontinence - Allergies/Home Medications Allergies/Adverse Reactions: Allergies Allergy/AdvReac Type Severity Reaction Status Date / Time No Known Allergies Allergy Verified 07/05/18 19:53 PMH/Surg Hx/FS Hx/Imm Hx Previously Healthy: Yes Endocrine/Hematology History: Reports: Hx Thyroid Disease Cardiovascular History: Reports: Hx Coronary Artery Disease, Hx Hypertension, Hx Pacemaker/ICD Denies: Other Cardiovascular Problems/Disorders Respiratory History: Reports: Hx Asthma, Hx Seasonal Allergies Denies: Other Respiratory Problems/Disorders GI History: Reports: Hx Gastroesophageal Reflux Disease, Hx Ulcer - HX ULCERS- SURGICALLY REPAIRED Musculoskeletal History: Reports: Hx Arthritis - HANDS, Hx Back Problems, Hx Gout, Hx Orthopedic Injury, Hx Tendonitis, Other Musculoskeletal History - HX GOUT FOOT AND RIGHT HIP AND FINFERS Sensory History: Reports: Hx Contacts or Glasses - READING Denies: Hx Hearing Aid Opthamlomology History: Reports: Hx Contacts or Glasses - READING Neurological History: Denies: Other Neuro Impairments/Disorders Psychiatric History: Reports: Hx Anxiety - ON MEDS, Hx Depression, Hx Inpatient Treatment - [facility] [place] [facility], Hx Community Mental Health Tx - [facility], Hx Suicide Attempt, Hx Substance Abuse - Alcohol. Lived at [facility] for 8yrs Denies: Hx Attention Deficit Hyperactivity Disorder, Hx Eating Disorder, Hx Panic Disorder, Hx Post Traumatic Stress Disorder, Hx Schizophrenia, Hx Bipolar Disorder, Hx of Violent Episodes Against Others, Other Psychiatric Issues/ Disorders - Surgical History Surgery Procedure, Year, and Place: LUMBAR x3 - LAST ONE 1988. STOMACH ULCER. CARDIAC BYPASS-. HEEL Rt - - THEN REMOVED METAL IN 1986 Hx Anesthesia Reactions: No - Immunization History Date of Tetanus Vaccine: Unk Date of Influenza Vaccine: None Immunizations Up to Date: Yes Infectious Disease History: No Infectious Disease History: Reports: Hx Hepatitis - HEP B Denies: Hx Clostridium Difficile, Hx Human Immunodeficiency Virus (HIV), Hx of Known/Suspected MRSA, Hx Shingles, Hx Tuberculosis, Hx Known/Suspected VRE, Hx Known/Suspected VRSA, History Other Infectious Disease, Traveled Outside the [place] in Last 30 Days - Family History Known Family History: Positive: Cardiac Disease, Other - alcohol abuse Negative: Hypertension, Diabetes - Social History Occupation: Employed Full-time Lives: Alone Alcohol Use: Daily Alcohol Amount: last used 6 months ago Hx Substance Use: Yes Substance Use Type: Reports: Marijuana Substance Use Comment - Amount & Last Used: occasionally Hx Tobacco Use: Yes Smoking Status (MU): Heavy Every Day Tobacco Smoker Type: Cigarettes Amount Used/How Often: states stoppe smoking a year ago (05/15) Have You Smoked in the Last Year: Yes Review of Systems - ROS Summary Review of Systems Summary: Home Medications Medication Instructions Recorded Confirmed Type Levothyroxine TAB* [Synthroid 88 88 mcg PO DAILY 04/12/13 02/22/17 History MCG TAB*] Allopurinol TAB* [Zyloprim 300 MG 300 mg PO DAILY 05/26/13 02/22/17 History TAB*] Atorvastatin* [Lipitor 10 MG*] 10 mg PO DAILY 12/04/14 02/22/17 History Ferrous Sulfate Dried [Slow Fe] 324 mg PO DAILY 03/13/16 12/14/16 History Metoprolol Succinate XL TAB* 100 mg PO DAILY 03/13/16 02/22/17 History [Toprol XL TAB*] Naproxen TAB* [Naprosyn 250 mg 500 mg PO BID PRN 03/13/16 02/22/17 History TAB*] Naltrexone TAB* 50 mg PO DAILY 07/01/16 02/22/17 History Aspirin 81 mg CHEW TAB* 81 mg PO DAILY #30 tab.chew 08/02/16 02/22/17 Rx Folic Acid TAB* [Folvite TAB*] 1 mg PO DAILY #30 tab 08/02/16 Rx Thiamine TAB* [Vitamin B-1 TAB 100 100 mg PO DAILY #30 tab 08/02/16 02/22/17 Rx MG*] Omeprazole CAP (NF) [Prilosec CAP* 20 mg PO BID 12/14/16 02/22/17 History 20 MG] QUEtiapine TAB* [SEROquel TAB*] 400 mg PO BEDTIME 12/14/16 02/22/17 History PARoxetine HCL TAB* [Paxil TAB*] 20 mg PO DAILY 02/22/17 02/22/17 History Albuterol HFA INHALER* [Ventolin 2 puff INH Q6H PRN #1 mdi 07/06/18 Rx HFA Inhaler*] Levofloxacin TAB* [Levaquin TAB*] 750 mg PO DAILY #7 tab 07/06/18 Rx predniSONE [Prednisone 20 MG TAB] 40 mg PO DAILY #6 tablet 07/06/18 Rx Negative: Fever Negative: Shortness Of Breath Negative: Vomiting, Nausea Genitourinary: Negative - bladder/bowel incontinence Negative: incontinence Positive: Decreased ROM, Other - Low back pain, radiates down to his feet Negative: Headache All Other Systems Reviewed And Are Negative: Yes Physical Exam - Summary Physical Exam Summary: General: Well-developed, Well-nourished male. Appears to be in mild discomfort. Sleepy HEENT: Normocephalic, Atraumatic. Eyes: Conjuctiva normal, PERRL. Ears: TMs within normal limits. Nares: (-) discharge, (-) erythema. Oropharynx: Clear, mucous membranes moist, (-) exudates. Neck: Soft, FROM, (-) lymphadenopathy, (-) thyromegaly, (-) JVD. Cardiovascular: Normal sinus rhythm, (-) murmur. Lungs: Clear to auscultation bilaterally (-) wheezes, (-) rales, (-) rhonchi. Abdomen: Soft, non-tender, non-distended, (-) organomegaly, normal bowel sounds. Back: (-) CVA tenderness Extremities: No edema. Skin: Warm, dry, (-) rash. Neuro: Alert and oriented x3, no focal deficits. Strength is normal bilaterally. Psychiatric: Mood normal, affect normal. Triage Information Reviewed: Yes Vital Signs On Initial Exam: Initial Vitals Pulse BP Pulse Ox 86 108/55 98 06/19/19 02:25 06/19/19 02:25 06/19/19 02:25 Vital Signs Reviewed: Yes Procedures - Sedation Patient Received Moderate/Deep Sedation with Procedure: No Diagnostics - Vital Signs Vital Signs Temp Pulse Resp BP Pulse Ox 06/19/19 03:00 89 96 06/19/19 02:55 89 101/64 96 06/19/19 02:41 83 95 06/19/19 02:32 98.8 F 88 18 108/55 96 06/19/19 02:25 86 108/55 98 - Laboratory Lab Statement: Any lab studies that have been ordered have been reviewed, and results considered in the medical decision making process. Re-Evaluation - Re-Evaluation First Eval Re-Evaluation Time: 04:06 Change: Improved Comment: I have discussed results with the patient and his low back pain is resolved. Discussed symptoms that warrant immediate return to ED. Back Pain Course/Dx - Course Course Of Treatment: patient wiht acute exacerbation of chronic low back pain. symptoms improved with walking. no red flags. improved after toradol. advised rest, ice, and started on 5 day burst of prednisone. follow up with PCP, follow up sooner for any worsening symptoms. - Diagnoses Provider Diagnoses: Acute exacerbation of chronic low back pain Discharge ED - Sign-Out/Discharge Documenting (check all that apply): Patient Departure - discharge - Discharge Plan Condition: Stable Disposition: HOME Prescriptions: predniSONE [Prednisone 20 MG TAB] 60 mg PO DAILY #15 tablet Patient Education Materials: Back Pain (ED), Lower Back Exercises (ED) Referrals: Octaviano Dupree MD [Primary Care Provider] - 2 Days Additional Instructions: PLEASE FOLLOW UP WITH YOUR PRIMARY CARE PROVIDER IN 2-3 DAYS AND RETURN TO THE EMERGENCY DEPARTMENT FOR ANY NEW OR WORSENING SYMPTOMS. - Billing Disposition and Condition Condition: STABLE Disposition: Home - Attestation Statements Document Initiated by Lis: Yes Documenting Scribe: Bobby Alvarez Provider For Whom Lis is Documenting (Include Credential): Milana Lopez MD Scribe Attestation: Bobby Patel, scribed for Milana Lopez MD on 06/19/19 at 0454. Scribe Documentation Reviewed: Yes Provider Attestation: The documentation as recorded by the Bobby givens accurately reflects the service I personally performed and the decisions made by me, Milana Lopez MD Status of Scribe Document: Viewed
[2019-06-19] MEDS ORDERED: predniSONE TAB* 20 MG PO ONE (04:04)
[2019-06-19 04:43] VITALS: BP 119/65
== END 2019-06-19 04:14 | disposition home or self-care (01) ==
LOC: ED 02:23
DX: G89.29 Other chronic pain (principal); M54.5 Low back pain; I10 Essential (primary) hypertension; F41.9 Anxiety disorder, unspecified; Z95.1 Presence of aortocoronary bypass graft; Z95.810 Presence of automatic (implantable) cardiac defibrillator; Z79.82 Long term (current) use of aspirin; F17.210 Nicotine dependence, cigarettes, uncomplicated
CPT/HCPCS: 99282; J7512

== ENCOUNTER 2020-11-18 13:30 | Observation (INO) ==
[2020-11-18] MEDS ORDERED: NS 0.9% 1000 ml BAG 1,000 ML IV ONE ×2 (13:49→14:28)
[2020-11-18 13:59] LABS: ABS Basophils 0.1 10^3/ul (0-0.2); ABS Eosinophils 0.5 10^3/ul (0-0.6); ABS Lymphocytes 1.9 10^3/ul (1.0-4.8); ABS Monocytes 0.5 10^3/ul (0-0.8); ABS Neutrophils 2.5 10^3/ul (1.5-7.7); Eosinophil % 9.1 %; Hematocrit 38 % (42-52); Hemoglobin 12.5 g/dL (14.0-18.0); Mean Corpuscular HGB Conc 33 g/dL (31-36); Mean Corpuscular Hemoglobin 31 pg (27-31); Mean Corpuscular Volume 92 fL (80-94); Mean Platelet Volume 9.1 fL (7.4-10.4); Nucleated Red Blood Cells % 0.1; Platelet Count 251 10^3/uL (150-450); Red Blood Count 4.08 10^6 /uL (4.18-5.48); Red Cell Distribution Width 14 % (10-15); White Blood Count 5.4 10^3/uL (3.5-10.8)
[2020-11-18 14:18] LABS: Albumin 4.2 g/dL (3.2-5.2); Albumin/Globulin Ratio 1.4 (1-3); BUN/Creatinine Ratio 14.3 (8-20); Calcium 9.5 mg/dL (8.6-10.3); EGFR African American 58.4 (>60); EGFR Non-African American 48.2 (>60); Globulin 2.9 g/dL (2-4); Potassium 4.6 mmol/L (3.5-5.0); Total Bilirubin 0.4 mg/dL (0.2-1.0); Total Protein 7.1 g/dL (6.4-8.9)
[2020-11-18 14:51] LABS: TSH Ultra Thyroid Stim Horm 4.41 mcIU/mL (0.34-5.60)
[2020-11-18] MEDS ORDERED: Atropine 1 MG/ML INJ 1 ML VIAL IV PUSH PRN (15:10)
[2020-11-18] MEDS ORDERED: Ondansetron 4 mg VIAL 2 MG/ML 2 ml VIAL IV PRN (15:13)
[2020-11-18] MEDS ORDERED: hydrALAZINE 20 mg/ml 1 ML Vial IV IV SLOW PU PRN (15:20)
[2020-11-18 16:09] LABS: Urine Appearance Cloudy; Urine Bilirubin Negative (Negative); Urine Blood Negative (Negative); Urine Color Yellow; Urine Glucose Negative (Negative); Urine Ketones Negative (Negative); Urine Nitrite Negative (Negative); Urine Protein Negative (Negative); Urine Specific Gravity 1.009 (1.002-1.030); Urine Urobilinogen Negative (Negative)
[2020-11-18] MEDS: Heparin 5000 UNITS/ML 1 mL VIAL SUBCUT SCH (21:06)
[2020-11-18] MEDS: FERROUS FUMARATE 324 MG PO SCH (21:07)
[2020-11-19] MEDS: Heparin 5000 UNITS/ML 1 mL VIAL SUBCUT SCH ×3 (05:34→20:45)
[2020-11-19 07:01] LABS: ABS Basophils 0.1 10^3/ul (0-0.2); ABS Eosinophils 0.6 10^3/ul (0-0.6); ABS Lymphocytes 2.4 10^3/ul (1.0-4.8); ABS Monocytes 0.5 10^3/ul (0-0.8); ABS Neutrophils 2.1 10^3/ul (1.5-7.7); Eosinophil % 9.8 %; Hematocrit 42 % (42-52); Hemoglobin 13.9 g/dL (14.0-18.0); Lymphocyte % 42.4 %; Mean Corpuscular HGB Conc 34 g/dL (31-36); Mean Corpuscular Hemoglobin 31 pg (27-31); Mean Corpuscular Volume 92 fL (80-94); Mean Platelet Volume 9.1 fL (7.4-10.4); Platelet Count 270 10^3/uL (150-450); Red Blood Count 4.53 10^6 /uL (4.18-5.48); Red Cell Distribution Width 14 % (10-15); White Blood Count 5.7 10^3/uL (3.5-10.8)
[2020-11-19 07:18] LABS: Albumin 4.4 g/dL (3.2-5.2); Albumin/Globulin Ratio 1.6 (1-3); BUN/Creatinine Ratio 12.9 (8-20); Calcium 9.8 mg/dL (8.6-10.3); EGFR Non-African American 58.7 (>60); Globulin 2.8 g/dL (2-4); Total Bilirubin 0.5 mg/dL (0.2-1.0); Total Protein 7.2 g/dL (6.4-8.9)
[2020-11-19] MEDS ORDERED: Perflutren Lipid Microsphere 3 ML VIAL ONE (09:33)
[2020-11-19] MEDS: Cholecalciferol (VIT D3) 1,000 unit TAB PO SCH (09:55)
[2020-11-19] MEDS: Al Hydrox/Mg Hydrox/Simet LIQ 30 ML UDC PO PRN ×2 (14:30→19:53)
[2020-11-19] MEDS: FERROUS FUMARATE 324 MG PO SCH (20:45)
[2020-11-20] MEDS: Heparin 5000 UNITS/ML 1 mL VIAL SUBCUT SCH ×2 (06:11→12:02)
[2020-11-20 06:46] LABS: Calcium 10.1 mg/dL (8.6-10.3); EGFR African American 75.9 (>60); EGFR Non-African American 62.8 (>60); Magnesium 1.9 mg/dL (1.9-2.7)
[2020-11-20] MEDS: Cholecalciferol (VIT D3) 1,000 unit TAB PO SCH (08:48)
[2020-11-20 11:25] VITALS: BP 141/80
== END 2020-11-20 14:12 ==
LOC: ED 13:30 → MEDTELE 13:30
PROVIDERS: ADMIT Hospitalist; ATTEND Internal Medicine